=== PATIENT | male | born 1955 | race Caucasian/White ===

== ENCOUNTER 2017-03-31 10:57 | Day surgery (SDC) | payer OTHER ==
--- NOTE | 2017-03-31 08:28 | HP ---
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 It has been itching and enlarging. He also has got an area on his mid back that is also ulcerated as well as left face. PAST MEDICAL HISTORY: Chronic obstructive pulmonary disease, dementia. PAST SURGICAL HISTORY: Carpal tunnel, right hand surgery in the past. MEDICATIONS: Gabapentin, Prilosec, Aricept. ALLERGIES: NKDA. FAMILY HISTORY: Heart disease, hypertension, cancer. SOCIAL HISTORY: One and a half pack per day smoker. Denies alcohol abuse. REVIEW OF SYSTEMS: Twelve systems reviewed. No chest pain or palpitations other systems negative or noncontributory as above and per preadmission questionnaire. PHYSICAL EXAMINATION: GENERAL: No acute distress. HEENT: Sclerae nonicteric. NECK: No JVD. CHEST: Equal excursion, nonlabored breathing. CVS: Regular rate and rhythm. ABDOMEN: Soft. No peritoneal signs. EXTREMITIES: No significant edema. NEURO: Alert, moving extremities symmetrically. No gross motor deficits noted. SKIN: Face he has aching, changing, enlarging, itching lesion of unclear etiology on the left face, left neck and back. IMPRESSION: Enlarging left face, left neck and back lesion of indeterminate significance. I feel he would benefit from excisional biopsy. Risks and benefits explained in detail including but not limited to bleeding or infection, risk of sensory or motor nerve irritation, scar formation, eyelid dysfunction or chewing dysfunction but not limited to. He understands and agrees to the planned procedure and will proceed with excisional biopsy of enlarging left face, left neck and back lesion as an outpatient.
[~2017-03-31 10:57] MED LIST: Lactated Ringers 1,000 ML IV ONE; Lactated Ringers 1,000 ML IV SCH; Sensorcaine 0.25% 10 ML ONE
[2017-03-31] MEDS ORDERED: Quelicin Fliptop 200 MG/10 ML IJ ONE (10:58)
[2017-03-31] MEDS ORDERED: DILAUDID 2 MG INJECTION IV ONE (10:58)
[2017-03-31] MEDS ORDERED: Zofran 4 MG/2 ML VIAL IV ONE (10:58)
[2017-03-31] MEDS ORDERED: Decadron 4 MG INJ IV ONE (10:58)
[2017-03-31] MEDS ORDERED: TORAdol 30 mg Injection IJ ONE (10:58)
[2017-03-31] MEDS ORDERED: SUBLIMAZE 100 MCG/2 ML IV ONE (10:58)
[2017-03-31] MEDS ORDERED: DIPRIVAN 200 MG/20 ML IV ONE (10:58)
[2017-03-31] MEDS ORDERED: Xopenex 1.25 MG/0.5 ML UD NEBULE IH ONE (11:57)
[2017-03-31] MEDS ORDERED: Sodium Chloride 3 ML UD NEBULES IH ONE (11:58)
[2017-03-31] MEDS ORDERED: Sodium Chloride 3 ML UD NEBULES IH PRN (12:11)
[2017-03-31] MEDS ORDERED: KEFZOL 1 GM ONE (13:16)
[2017-03-31] MEDS ORDERED: Lactated Ringers 1,000 ML IV ONE (14:06)
[2017-03-31 15:24] VITALS: O2SAT 95
[2017-03-31 15:58] VITALS: BP 165/81; PULSE 95
--- NOTE | 2017-04-01 09:06 | OP ---
SURGERY DATE/TIME: 03/31/2017 1310 PREOPERATIVE DIAGNOSIS: Nonhealing lesion left face, left neck and back. POSTOPERATIVE DIAGNOSIS: Nonhealing lesion left face, left neck and back. PROCEDURES: 1) Excisional biopsy left face nonhealing, enlarging lesion of undetermined significance approximately 1.2 cm with margins with intermediate closure. 2) Excisional biopsy of left neck darkly pigmented nonhealing lesion of indeterminate significance approximately 1.3 cm with margins with intermediate closure. 3) Excisional nonhealing back lesion with intermediate bleeding approximately 1 cm margins with intermediate closure. SURGEON: Dr. Robin Granado. UNDERWRITING TECHNICIAN: Dr. Kiki Martinez. ANESTHESIA: General. ESTIMATED BLOOD LOSS: Minimal. INDICATIONS: As noted above. Risks and benefits explained in detail and not limited to and consent obtained. DESCRIPTION OF PROCEDURE AND FINDINGS: The patient is taken to the operating room. The area had been marked with the patient in preoperative holding area. General anesthesia was induced. He was then placed in first the lateral position. The back is prepped and draped in sterile fashion. After official time out and no disagreement with planned procedure marking out in spindle-shaped fashion around normal appearing skin, around this area, dissection is carried down circumferentially around this about 1 cm with margins resulting in a spindle-shaped excision pattern about 3 cm. Dissection carried down to normal appearing subcutaneous tissue and passed off. Good hemostasis noted with pinpoint cautery. Subcu closed with 3-0 Vicryl, skin closed with 4-0 Vicryl, interrupted 3-0 Prolene used to reinforce the local flaps that had been advanced back to the midline. Steri-Strips and sterile dressing applied. The patient tolerated the procedure well. There were no immediate complications. The patient is then repositioned in the supine position with the head rotated right. His face and neck were then prepped and draped in usual sterile fashion. Starting first with the neck in spindle-shaped fashion excising around this approximately 1.3 cm specimen with margins. Dissection carried down to normal appearing subcutaneous tissue beneath, passing the specimen off. The wound is then closed with interrupted 3-0 Vicryl to close the subcu. Deep dermis and skin closed with 4-0 Vicryl running subcuticular fashion. Steri-Strips and sterile dressing applied. 0.25% Marcaine local injected along the fascial defects. The patient tolerated the procedure well. There were no immediate complications on this part of the procedure. Attention is then turned to the face lesion marking out to normal appearing skin on either side of this in a spindle-shaped excision pattern this was about 1.2 cm with margins. Dissection carried down to normal appearing subcutaneous tissue beneath. The specimen passed off again measured about 1.2 cm with margins. Hemostasis controlled with some pinpoint cautery with the cautery turned very low. The wound is then closed in layers advancing the flaps back towards the midline with interrupted 4-0 Vicryl with a running subcuticular 5-0 Prolene used to close the skin. Steri-Strips and sterile dressing applied. The patient tolerated the procedure well. There were no immediate complications. Findings discussed with the family out in the waiting area.
== END 2017-03-31 15:50 | disposition home or self-care (01) ==
LOC: SDC 10:57
PROVIDERS: ATTEND Surgery
PROC: 0HB1XZZ Excision of Face Skin, External Approach (ICD-10-PCS; principal; 2017-03-31)
PROC: 0HB4XZZ Excision of Neck Skin, External Approach (ICD-10-PCS; 2017-03-31)
DX: L98.9 Disorder of the skin and subcutaneous tissue, unspecified (principal)
CPT/HCPCS: 00300; 36415; 88305; J0330; J0690; J1100; J1170; J1885; J2405; J2704; J3010; A9270-GY

== ENCOUNTER 2017-09-10 18:47 | Emergency (ER) | payer OTHER ==
[2017-09-10] MEDS ORDERED: Sodium Chloride 0.9% 1000 ML 1,000 ML IV STA (19:20)
[2017-09-10] MEDS ORDERED: DUONEB 0.5-3 MG/3 ml Neb IH ONE ×2 (19:22→21:07)
--- NOTE | 2017-09-10 19:26 | ERPHSYRPT ---
- History of Present Illness Time Seen by Provider: 09/10/17 19:15 Source: patient Exam Limitations: no limitations Patient Subjective Stated Complaint: Diagnosed with Influenza B yesterday and still has a fever today and still feels bad Triage Nursing Assessment: Pt A&O x3, temp of 97.4, lungs wheezy on right side, doesn't appear to be in any distress, bilateral pulses strong Physician History: 62 y/o male who was diagnosed with influenza B yesterday and was started on tamiflu, comes back to the ER with similar symptoms of cough, congestion, sore throat, runny nose, wheezing, muscle aches and shortness of breath. Pt was also started on prednisone and has not noticed any improvement. Pt arrives with a temp of 97.9. Timing/Duration: day(s) Cough Quality/Degree: moderate Possible Cause: no prior episodes Modifying Factors: Improves With: activity Associated Symptoms: fever, chills, cough, muscle aches, nasal congestion, sore throat Allergies/Adverse Reactions: No Known Drug Allergies Allergy (Verified 03/31/17 11:42) Home Medications: Fluticasone/Salmeterol 115/21 [Advair Hfa 115/21 Common canister*] 2 puff IH BID 11/28/14 [History] Loratadine 10 mg [Claritin 10 mg] 10 mg PO DAILY 11/28/14 [History] Mometasone Furoate [Nasonex] 2 spray NS DAILY 11/28/14 [History] Gabapentin [Neurontin] 600 mg PO BID 01/05/16 [History] Ipratropium/Albuterol Sulfate [Combivent Respimat Common Canister] 2 puff IH QID PRN 01/05/16 [History] Montelukast Sodium [Singulair] 10 mg PO DAILY 01/05/16 [History] Citalopram Hydrobromide 20 mg* [ceLEXa 20 MG] 20 mg PO DAILY 03/26/17 [ History] Donepezil HCl [Aricept] 10 mg PO DAILY 03/26/17 [History] Folic Acid 1 mg [Folate 1 mg] 1 mg PO DAILY 03/26/17 [History] Gabapentin 300 mg PO HS 03/26/17 [History] Meloxicam [Mobic] 15 mg PO DAILY 03/26/17 [History] Memantine HCl 5 mg [Namenda 5 MG] 5 mg PO DAILY 03/26/17 [History] Pramipexole Di-HCl 0.5 mg [Mirapex 0.5 MG Tablet] 0.5 mg PO DAILY [History] Hx Influenza Vaccination/Date Given: Yes Hx Pneumococcal Vaccination/Date Given: No - Review of Systems Constitutional: No Fever, No Chills Eyes: No Symptoms Ears, Nose, & Throat: Nose Congestion, Nose Discharge Respiratory: Cough, Dyspnea, Dyspnea on Exertion (DWYER) Cardiac: No Chest Pain, No Edema, No Syncope Abdominal/Gastrointestinal: No Abdominal Pain, No Nausea, No Vomiting, No Diarrhea Genitourinary Symptoms: No Dysuria Musculoskeletal: Myalgias, No Back Pain, No Neck Pain Skin: No Rash Neurological: No Dizziness, No Focal Weakness, No Sensory Changes Psychological: No Symptoms Endocrine: No Symptoms All Other Systems: Reviewed and Negative - Past Medical History Pertinent Past Medical History: Yes Neurological History: No Pertinent History ENT History: No Pertinent History Cardiac History: Angina Respiratory History: COPD, Sleep Apnea Endocrine Medical History: No Pertinent History Musculoskeletal History: No Pertinent History GI Medical History: GERD History: No Pertinent History Psycho-Social History: No Pertinent History Male Reproductive Disorders: No Pertinent History Other Medical History: restless leg - Past Surgical History Past Surgical History: Yes Neuro Surgical History: No Pertinent History Cardiac: No Pertinent History Respiratory: No Pertinent History Gastrointestinal: Other Genitourinary: No Pertinent History Musculoskeletal: Orthopedic Surgery Male Surgical History: No Pertinent History Other Surgical History: colonoscopy with poypectomy, carpal tunnel, mole removal - Social History Smoking Status: Current every day smoker How long have you smoked: 40yrs Exposure to second hand smoke: Yes Drug Use: none Patient Lives Alone: No - Nursing Vital Signs Nursing Vital Signs: Initial Vital Signs Temperature 97.4 F 09/10/17 19:01 Pulse Rate 98 H 09/10/17 19:01 Blood Pressure 137/92 09/10/17 19:01 O2 Sat by Pulse Oximetry 97 09/10/17 19:01 Pain Scale Pain Intensity 2 - Physical Exam General Appearance: no apparent distress, alert Eye Exam: PERRL/EOMI, eyes nml inspection Ears, Nose, Throat Exam: TMs normal, pharynx normal, dry mucous membranes Neck Exam: normal inspection, non-tender, supple, full range of motion Respiratory Exam: wheezing, No respiratory distress Cardiovascular Exam: regular rate/rhythm, normal heart sounds, normal peripheral pulses Gastrointestinal/Abdomen Exam: soft, No tenderness Back Exam: normal inspection, normal range of motion, No CVA tenderness, No vertebral tenderness Extremity Exam: normal inspection, normal range of motion Neurologic Exam: alert, oriented x 3, cooperative, normal mood/affect, sensation nml, No motor deficits Skin Exam: normal color, warm, dry, No rash Lymphatic Exam: No adenopathy SpO2: 97 Oxygen Delivery: Room Air - Course Nursing assessment & vital signs reviewed: Yes Ordered Tests: Active Orders 24 hr Category Date Time Status Rabbet Operator STAT Care 09/10/17 19:21 Active IV Insertion STAT Care 09/10/17 19:20 Active CHEST 2 VIEWS (PA AND LAT) Stat Exams 09/10/17 19:21 Taken BLOOD CULTURE Stat Lab 09/10/17 19:55 Received CBC W DIFF Stat Lab 09/10/17 19:45 Completed CMP Stat Lab 09/10/17 19:45 Completed Lactic Acid Stat Lab 09/10/17 19:20 Results Respiratory Nebulizer STAT RT 09/10/17 19:22 Completed Medication Summary Discontinued Medications Generic Name Dose Route Start Last Admin Trade Name Freq PRN Reason Stop Dose Admin Albuterol/Ipratropium 3 ml 09/10/17 19:22 09/10/17 21:09 Duoneb 0.5-3 Mg/3 Ml Neb IH 09/10/17 19:23 3 ml STAT ONE Administration Albuterol/Ipratropium Confirm 09/10/17 21:07 Duoneb 0.5-3 Mg/3 Ml Neb Administered 09/10/17 21:08 Dose 3 ml IH .STK-MED ONE Sodium Chloride 1,000 mls @ 999 mls/hr 09/10/17 19:20 09/10/17 19:46 Sodium Chloride 0.9% 1000 Ml IV 09/10/17 20:20 999 mls/hr .Q1H1M STA Administration Sodium Chloride Confirm 09/10/17 19:29 Sodium Chloride 0.9% 1000 Ml Administered 09/10/17 19:30 Dose 1,000 mls @ ud .ROUTE .STK-MED ONE Sodium Chloride Confirm 09/10/17 19:46 Sodium Chloride 0.9% 1000 Ml Administered 09/10/17 19:47 Dose 1,000 mls @ ud .ROUTE .[facility] Lab/Rad Data: Laboratory Result Diagrams 09/10/17 19:45 09/10/17 19:45 Laboratory Results 09/10/17 09/10/17 09/10/17 Range/Units 19:45 19:45 19:20 WBC 8.2 (4.0-10.5) K/mm3 RBC 5.08 (4.1-5.6) M/mm3 Hgb 15.6 (12.5-18.0) gm/dl Hct 46.3 (42-50) % MCV 91.1 (78-100) fl MCH 30.7 (26-32) pg MCHC 33.7 (32-36) g/dl RDW 14.0 (11.5-14.0) % Plt Count 179 (150-450) K/mm3 MPV 9.7 H (6-9.5) fl Gran % 74.9 H (36.0-66.0) % Lymphocytes % 15.9 L (24.0-44.0) % Monocytes % 8.9 (0.0-12.0) % Eosinophils % 0.2 (0.00-5.0) % Basophils % 0.1 (0.0-0.4) % Basophils # 0.01 (0-0.4) Sodium 138 (136-145) mEq/L Potassium 3.5 (3.5-5.1) mEq/L Chloride 100 (98-107) mEq/L Carbon Dioxide 24.9 (21-32) mEq/L Anion Gap 16.4 H (5-15) MEQ/L BUN 5 L (9-20) mg/dL Creatinine 0.98 (0.55-1.30) mg/dl Estimated GFR > 60 ML/MIN Glucose 140 H (70-110) MG/DL Lactic Acid 2.1 H (0.4-2.0) Calcium 8.9 (8.5-10.1) mg/dL Total Bilirubin 0.30 (0.2-1.0) mg/dL AST 17 (15-37) U/L ALT 35 (12-78) U/L Alkaline Phosphatase 52 (46-116) U/L Serum Total Protein 7.7 (6.4-8.2) gm/dL Albumin 3.3 L (3.4-5.0) g/dL - Progress Progress: improved Progress Note: 09/10/17 21:20 Pt feels better after receiving duoneb and solumedrol. Labs are unremarkable and the CXR does not show any infiltrate. Pt will continue on tamiflu and will add guafenesin with codeine and prednisone. - Departure Time of Disposition: 21:21 Departure Disposition: Home Clinical Impression: Influenza B COPD (chronic obstructive pulmonary disease) Qualifiers: COPD type: unspecified COPD Qualified Code(s): J44.9 - Chronic obstructive pulmonary disease, unspecified Condition: Stable Critical Care Time: No Referrals: CANDY IQBAL [Primary Care Provider] - Instructions: Chronic Obstructive Pulmonary Disease, Flu, Adult (DC) Additional Instructions: Continue taking tamiflu until completion. Start taking prednisone and guafenesin with codeine as needed for cough. Prescriptions: Codeine Phosphate/Guaifenesin [Codeine-Guaifen 10-100 mg/5 ml] 5 ml PO QID PRN # 120 liquid PRN Reason: Cough Prednisone 20 mg [Deltasone 20 mg] 20 mg PO DAILY #5 tablet
[2017-09-10] MEDS ORDERED: Sodium Chloride 0.9% 1000 ML 1,000 ML ONE ×2 (19:29→19:46)
[2017-09-10 19:53] LABS: Lactic Acid 2.1 (0.4-2.0)
[2017-09-10 20:01] LABS: BASOPHIL % 0.1 % (0.0-0.4); Basophil (Absolute #) 0.01 (0-0.4); Eosinophil % 0.2 % (0.00-5.0); Eosinophil (Absolute #) 0.02 (0-0.5); Granulocyte Absolute (ANC) 6.12 (1.4-6.9); Granulocytes % 74.9 % (36.0-66.0); Hematocrit 46.3 % (42-50); Hemoglobin 15.6 gm/dl (12.5-18.0); Lymphocytes % 15.9 % (24.0-44.0); Mean Cell Volume 91.1 fl (78-100); Mean Corpuscular Hemoglobin 30.7 pg (26-32); Mean Corpuscular Hgb Concent. 33.7 g/dl (32-36); Mean Platelet Volume 9.7 fl (6-9.5); Monocyte (Absolute #) 0.73 (0.0-1.3); Monocytes % 8.9 % (0.0-12.0); Platelet Count 179 K/mm3 (150-450); Red Blood Count 5.08 M/mm3 (4.1-5.6); White Blood Count 8.2 K/mm3 (4.0-10.5)
[2017-09-10 20:27] LABS: ALBUMIN 3.3 g/dL (3.4-5.0); ALKALINE PHOSPHATASE 52 U/L (46-116); ANION GAP 16.4 MEQ/L (5-15); BLOOD UREA NITROGEN 5 mg/dL (9-20); CHLORIDE 100 mEq/L (98-107); Calcium 8.9 mg/dL (8.5-10.1); Carbon Dioxide 24.9 mEq/L (21-32); Creatinine 1 0.98 mg/dl (0.55-1.30); Glucose 140 MG/DL (70-110); Potassium 3.5 mEq/L (3.5-5.1); SGOT/AST 17 U/L (15-37); SGPT/ALT 35 U/L (12-78); SODIUM 138 mEq/L (136-145); Total Protein 7.7 gm/dL (6.4-8.2)
[2017-09-10] MEDS ORDERED: TYLENOL W/ CODEINE 5 ML UD CUP PO ONE (21:19)
[2017-09-10] MEDS ORDERED: Robitussin AC Syrup Unit Dose Cup ONE (21:20)
[2017-09-10] MEDS ORDERED: Robitussin AC Syrup Unit Dose Cup PO ONE (21:25)
[2017-09-10 21:29] VITALS: BP 145/75; PULSE 88; O2SAT 95
--- NOTE | 2017-09-11 09:58 | XRAY ---
Exam: Two-view chest from 09/10/2017. Comparison: Two-view chest from 01/20/2017. Indication: Shortness of breath, fever, positive for influenza Findings: 2 upright PA chest films and a lateral chest film are submitted for evaluation. There is hyperinflation of the lungs with depressed flattened hemidiaphragms suggesting COPD. The transverse heart size is normal. Bilateral epicardial fat pads are seen at both cardiophrenic angles, larger on the left than right. This is unchanged. The remainder the kaitlin and mediastinal structures appears unremarkable. No air space infiltrates, vascular congestion, pneumothorax, or pleural fluid is seen. Minimal biapical pleural thickening/scarring is seen. No acute osseous process is seen. Impression: 1. Hyperinflation of lung morrison consistent with COPD. 2. No air space infiltrates or other acute cardio pulmonary disease is seen.
== END 2017-09-10 21:39 | disposition home or self-care (01) ==
LOC: ED 18:47
DX: J11.1 Influenza due to unidentified influenza virus with other respiratory manifestations (principal); J44.9 Chronic obstructive pulmonary disease, unspecified; Z79.899 Other long term (current) drug therapy
CPT/HCPCS: 36000; 36415; 71046; 80053; 83605; 85025; 87040; 93041; 94640; 99284; A9270-GY

== ENCOUNTER 2018-08-24 05:52 | Day surgery (SDC) | payer MEDICARE ==
[2018-08-24] MEDS ORDERED: DIPRIVAN 200 MG/20 ML IV ONE (05:53)
[2018-08-24] MEDS ORDERED: Lactated Ringers 1,000 ML IV SCH (06:30)
[2018-08-24] MEDS ORDERED: Lactated Ringers 1,000 ML IV ONE (06:39)
[2018-08-24 08:20] VITALS: O2SAT 97
[2018-08-24 08:27] VITALS: BP 160/88; PULSE 91
--- NOTE | 2018-08-24 08:33 | OP ---
SURGERY DATE/TIME: 08/24/2018 0730 PREOPERATIVE DIAGNOSIS: History of colon polyps and change in bowel habits. POSTOPERATIVE DIAGNOSIS: Polyp in the ascending colon. PROCEDURE: Colonoscopy with polypectomy using hot snare. SURGEON: Dr. White. ANESTHESIA: MAC. Anesthesia given by anesthesia department. HISTORY: The patient is a 63 year-old white male now presenting for colonoscopic evaluation. He previously had polyps removed. He is now having problems with increasing constipation. The patient was felt the need to have endoscopic evaluation. He was appraised of the risks of the procedure including the risk of perforation, phlebitis, untoward reaction to medication, bleeding and missed lesions. The patient verbalized his understanding and desired to have the procedure performed. DESCRIPTION OF PROCEDURE: The patient was given the medications by the anesthesia department. He had continuous pulse oximetry, ECG monitoring, intermittent blood pressure monitoring and tidal CO2 monitoring during the examination. He was placed in the left lateral decubitus position. A digital rectal examination was performed and revealed normal anal sphincter tone, no masses and normal prostate. The flexible Olympus pediatric colonoscope was used to intubate the rectum. A view of the colon was developed sequentially to the cecum. Upon insertion and withdrawal was noted a polyp measuring approximately 1.5 x 1.5 cm in size. It is sessile on the ascending colon near the cecum this is removed using hot polypectomy snare and retrieved for pathologic evaluation. Upon insertion and withdrawal including retroflex view in the rectum, no other mucosal lesions were encountered. The scope was removed from the patient who tolerated the procedure well and was sent back to OP recovery in good condition. The prep was noted to be fair to good.
== END 2018-08-24 08:37 | disposition home or self-care (01) ==
LOC: SDC 05:52
PROVIDERS: ATTEND Family Medicine
DX: D12.2 Benign neoplasm of ascending colon (principal); R19.4 Change in bowel habit; Z86.010 Personal history of colon polyps
CPT/HCPCS: J2704

== ENCOUNTER 2019-10-31 18:51 | Emergency (ER) | payer MEDICARE ==
[2019-10-31] MEDS ORDERED: Zofran 4 MG/2 ML VIAL IV ONE (19:40)
[2019-10-31] MEDS ORDERED: Sodium Chloride 0.9% 1000 ML 1,000 ML IV STA (19:40)
[2019-10-31] MEDS ORDERED: MORPHINE SULFATE 4 MG INJ IV ONE (19:40)
[2019-10-31] MEDS ORDERED: MORPHINE SULFATE 4 MG INJ ONE (19:59)
[2019-10-31] MEDS ORDERED: Zofran 4 MG/2 ML VIAL ONE (19:59)
[2019-10-31] MEDS ORDERED: Sodium Chloride 0.9% 1000 ML 1,000 ML ONE (20:00)
[2019-10-31 20:12] LABS: Absolute Neutrophil Ct (ANC) 9.44 (1.4-6.9); BASOPHIL % 0.2 % (0.0-0.4); Basophil (Absolute #) 0.03 (0-0.4); Eosinophil % 0.9 % (0.00-5.0); Eosinophil (Absolute #) 0.11 (0-0.5); Hematocrit 46.5 % (42-50); Hemoglobin 15.4 gm/dl (12.5-18.0); Lymphocyte (Absolute #) 1.93 (1.0-4.6); Lymphocytes % 15.7 % (24.0-44.0); Mean Cell Volume 93.6 fl (78-100); Mean Corpuscular Hgb Concent. 33.1 g/dl (32-36); Mean Platelet Volume 9.1 fl (7.5-11.0); Monocyte (Absolute #) 0.79 (0.0-1.3); Monocytes % 6.4 % (0.0-12.0); Neutrophil % 76.8 % (36.0-66.0); Platelet Count 207 K/mm3 (150-450); Red Blood Count 4.97 M/mm3 (4.1-5.6); Red Cell Distribution Width 13.8 % (11.5-14.0); White Blood Count 12.3 K/mm3 (4.0-10.5)
[2019-10-31 20:23] LABS: ALBUMIN 3.7 g/dL (3.5-5.0); ALKALINE PHOSPHATASE 51 U/L (38-126); AMYLASE 57 U/L (30-110); ANION GAP 11.2 MEQ/L (5-15); BLOOD UREA NITROGEN 12 mg/dL (9-20); CHLORIDE 104 mmol/L (98-107); Calcium 9.3 mg/dL (8.4-10.2); Carbon Dioxide 28 mmol/L (22-30); Creatinine 1 0.75 mg/dL (0.66-1.25); Glucose 119 mg/dL (74-106); LIPASE 109 U/L (23-300); Potassium 3.9 mmol/L (3.5-5.1); SGOT/AST 18 U/L (17-59); SGPT/ALT 18 U/L (0-50); SODIUM 139 mmol/L (137-145)
[2019-10-31 21:44] LABS: Appearance CLEAR (CLEAR); Bilirubin NEGATIVE (NEGATIVE); Blood NEGATIVE Ery/ul (0-5); Glucose NEGATIVE (NEGATIVE); Ketones NEGATIVE (NEGATIVE); Leukocyte Esterase NEGATIVE (NEGATIVE); Nitrite NEGATIVE (NEGATIVE); Protein,Urine Dip NEGATIVE (Negative); Specific Gravity 1.009 (1.005-1.025); Urobilinogen NEGATIVE mg/dL (0-1)
--- NOTE | 2019-10-31 21:45 | ERPHSYRPT ---
- History of Present Illness Time Seen by Provider: 10/31/19 19:10 Historian: patient Patient Subjective Stated Complaint: pt here for abd pain since ,and started having cough and sob since friday morning, no fever, Triage Nursing Assessment: pt alert, walked in, resp easy, skin w/d/p. wheezes heard,abd distended, tender to touch, has congested sounding cough Physician History: 64 years old male presented in the ER with 3 days history of generalized abdominal pain with mild distention. Patient report initially he thought about having constipation and has taken a laxative with a good bowel movement today but still having some pain. Patient described this as a dull aching to sharp pain moderate intensity, more with movements and palpation and no significant relieving factors. Because of abdominal pain he is also having some shortness of breath but no shortness of breath otherwise. He has mild nasal congestion but minimal cough. No fever or chills reported. Denies any associated nausea or vomiting. Patient reported mild abdominal distention but at his baseline abdomen is distended and does not feel much different. Denies any urinary symptoms. Timing/Duration: day(s) (3), gradual onset, worse Activities at Onset: rest Quality: sharpness Abdominal Pain Onset Location: generalized abdomen Pain Radiation: no radiation Severity of Pain-Max: moderate Severity of Pain-Current: moderate Modifying Factors: Improves With: movement Associated Symptoms: denies symptoms, shortness of breath Previous symptoms: no prior history Allergies/Adverse Reactions: No Known Drug Allergies Allergy (Verified 10/31/19 19:17) Home Medications: Fluticasone/Salmeterol 115/21 [Advair Hfa 115/21 Common canister*] 2 puff IH BID 11/28/14 [History] Gabapentin [Neurontin] 600 mg PO TID 01/05/16 [History] Ipratropium/Albuterol Sulfate [Combivent Respimat Common Canister] 2 puff IH QID PRN 01/05/16 [History] Montelukast Sodium [Singulair] 10 mg PO DAILY 01/05/16 [History] Pramipexole Di-HCl 0.5 mg [Mirapex 0.5 MG Tablet] 0.5 mg PO DAILY [History] predniSONE [Prednisone] 5 mg DAILY 10/31/19 [History] Hx Influenza Vaccination/Date Given: Yes Hx Pneumococcal Vaccination/Date Given: Yes Immunizations Up to Date: Yes Travel Risk - International Travel Have you traveled outside of the country in past 3 weeks: No (N) Have you or anyone close to you been diagnosed with or: No Do your reside in a community with a known COVID-19 case?: Yes If Yes where:: [facility] - Coronavirus Screening Has patient experienced Coronavirus symptoms: Yes Symptoms experienced: respiratory symptoms (i.e.Cought,shortness of breath) - Review of Systems Constitutional: No Symptoms Eyes: No Symptoms Ears, Nose, & Throat: Nose Congestion Respiratory: Cough, Dyspnea Cardiac: No Symptoms Abdominal/Gastrointestinal: Abdominal Pain, Constipation Genitourinary Symptoms: No Symptoms Musculoskeletal: No Symptoms Skin: No Symptoms Neurological: No Symptoms Psychological: No Symptoms Endocrine: No Symptoms Hematologic/Lymphatic: No Symptoms Immunological/Allergic: No Symptoms - Past Medical History Pertinent Past Medical History: Yes Neurological History: Dementia ENT History: No Pertinent History Cardiac History: Angina Respiratory History: COPD, Sleep Apnea Endocrine Medical History: No Pertinent History Musculoskeletal History: Osteoarthritis GI Medical History: GERD History: No Pertinent History Psycho-Social History: No Pertinent History Male Reproductive Disorders: No Pertinent History Other Medical History: restless leg - Past Surgical History Past Surgical History: Yes Neuro Surgical History: No Pertinent History Cardiac: No Pertinent History Respiratory: No Pertinent History Gastrointestinal: Other Genitourinary: No Pertinent History Musculoskeletal: Orthopedic Surgery Male Surgical History: No Pertinent History Other Surgical History: colonoscopy with poypectomy, carpal tunnel, mole removal face and back - Social History Smoking Status: Current every day smoker How long have you smoked: 47yrs Exposure to second hand smoke: Yes Drug Use: none Patient Lives Alone: Yes - Nursing Vital Signs Nursing Vital Signs: Initial Vital Signs Pulse Rate 79 10/31/19 18:52 Respiratory Rate 18 10/31/19 18:52 Blood Pressure 131/73 10/31/19 18:52 O2 Sat by Pulse Oximetry 97 10/31/19 18:52 Pain Scale Pain Intensity 5 - Physical Exam General Appearance: no apparent distress Eye Exam: PERRL/EOMI, eyes nml inspection Ears, Nose, Throat Exam: normal ENT inspection, pharynx normal Neck Exam: normal inspection, non-tender, supple, full range of motion Respiratory Exam: normal breath sounds, airway intact, wheezing, No chest tenderness, No respiratory distress Cardiovascular Exam: regular rate/rhythm, normal heart sounds, normal peripheral pulses Gastrointestinal/Abdomen Exam: soft, tenderness (Generalized) Back Exam: normal inspection, normal range of motion, No CVA tenderness Extremity Exam: normal inspection, normal range of motion Neurologic Exam: alert, oriented x 3, cooperative Skin Exam: normal color SpO2 Interpretation: normal SpO2: 97 O2 Delivery: Room Air - Course Nursing assessment & vital signs reviewed: Yes Ordered Tests: Active Orders 24 hr Category Date Time Status IV Insertion STAT Care 10/31/19 19:40 Active Isolation, Initiate & Maintain Q4H Care 10/31/19 19:16 Active ABDOMEN AND PELVIS W CONTRAST [CT] Stat Exams 10/31/19 19:41 Taken AMYLASE Stat Lab 10/31/19 20:09 Completed CBC W DIFF Stat Lab 10/31/19 20:09 Completed CMP Stat Lab 10/31/19 20:09 Completed LIPASE Stat Lab 10/31/19 20:09 Completed TROPONIN Q3H Lab 10/31/19 20:09 Completed TROPONIN Q3H Lab 10/31/19 22:45 Ordered TROPONIN Q3H Lab 11/01/19 01:45 Ordered TROPONIN Q3H Lab 11/01/19 04:45 Ordered TROPONIN Q3H Lab 11/01/19 07:45 Ordered UA W/RFX UR CULTURE Stat Lab 10/31/19 21:39 Received Medication Summary Discontinued Medications Generic Name Dose Route Start Last Admin Trade Name Freq PRN Reason Stop Dose Admin Sodium Chloride 1,000 mls @ 999 mls/hr 10/31/19 19:40 10/31/19 21:36 Sodium Chloride 0.9% 1000 Ml IV 10/31/19 20:40 Infused .Q1H1M STA Infusion Sodium Chloride Confirm 10/31/19 20:00 Sodium Chloride 0.9% 1000 Ml Administered 10/31/19 20:01 Dose 1,000 mls @ ud .ROUTE .STK-MED ONE Morphine Sulfate 4 mg 10/31/19 19:40 10/31/19 20:03 Morphine Sulfate 4 Mg Inj IV 10/31/19 19:41 4 mg STAT ONE Administration Morphine Sulfate Confirm 10/31/19 19:59 Morphine Sulfate 4 Mg Inj Administered 10/31/19 20:00 Dose 4 mg .ROUTE .STK-MED ONE Ondansetron HCl 4 mg 10/31/19 19:40 10/31/19 20:03 Zofran 4 Mg/2 Ml Vial IV 10/31/19 19:41 4 mg STAT ONE Administration Ondansetron HCl Confirm 10/31/19 19:59 Zofran 4 Mg/2 Ml Vial Administered 10/31/19 20:00 Dose 4 mg .ROUTE .STK-MED ONE Lab/Rad Data: Laboratory Result Diagrams 10/31/19 20:09 10/31/19 20:09 Laboratory Results 10/31/19 10/31/19 10/31/19 Range/Units 20:09 20:09 20:09 WBC 12.3 H (4.0-10.5) K/mm3 RBC 4.97 (4.1-5.6) M/mm3 Hgb 15.4 (12.5-18.0) gm/dl Hct 46.5 (42-50) % MCV 93.6 (78-100) fl MCH 31.0 (26-32) pg MCHC 33.1 (32-36) g/dl RDW 13.8 (11.5-14.0) % Plt Count 207 (150-450) K/mm3 MPV 9.1 (7.5-11.0) fl Gran % 76.8 H (36.0-66.0) % Eos # (Auto) 0.11 (0-0.5) Absolute Lymphs (auto) 1.93 (1.0-4.6) Absolute Monos (auto) 0.79 (0.0-1.3) Lymphocytes % 15.7 L (24.0-44.0) % Monocytes % 6.4 (0.0-12.0) % Eosinophils % 0.9 (0.00-5.0) % Basophils % 0.2 (0.0-0.4) % Absolute Granulocytes 9.44 H (1.4-6.9) Basophils # 0.03 (0-0.4) Sodium 139 (137-145) mmol/L Potassium 3.9 (3.5-5.1) mmol/L Chloride 104 (98-107) mmol/L Carbon Dioxide 28 (22-30) mmol/L Anion Gap 11.2 (5-15) MEQ/L BUN 12 (9-20) mg/dL Creatinine 0.75 (0.66-1.25) mg/dL Estimated GFR > 60.0 ML/MIN Glucose 119 H (74-106) mg/dL Calcium 9.3 (8.4-10.2) mg/dL Total Bilirubin 0.50 (0.2-1.3) mg/dL AST 18 (17-59) U/L ALT 18 (0-50) U/L Alkaline Phosphatase 51 (38-126) U/L Troponin I < 0.012 (0.000-0.034) ng/mL Serum Total Protein 7.0 (6.3-8.2) g/dL Albumin 3.7 (3.5-5.0) g/dL Amylase 57 (30-110) U/L Lipase 109 (23-300) U/L - Progress Progress: improved, re-examined Progress Note: 10/31/19 21:48 Is given IV fluid and pain medication x1, on reevaluation pain is almost completely gone. I have obtained acute abdomen work-up including CT with contrast which did not show any acute findings. Has mildly elevated white count of 12 with normal chemistries. I do not know the exact cause of his pain but could be secondary to constipation which she had earlier and is relieved now. I would give him a few pain pills to go home and recommended outpatient follow-up. Discussed signs symptoms of worsening needing return which he seems understanding. Stable for discharge. Counseled pt/family regarding: lab results, diagnosis, need for follow-up, rad results - Departure Departure Disposition: Home Clinical Impression: Generalized abdominal pain Condition: Good Critical Care Time: No Referrals: CANDY IQBAL [Primary Care Provider] - (1 to 2 days for reevaluation) Instructions: Acute Abdomen (Belly Pain), Adult (DC) Additional Instructions: Follow-up with primary care for reevaluation. Take pain medications as needed. Return to ER for any worsening. Prescriptions: Hydrocodone/APAP 5-325 Tab^^^ [[place] 5-325 Tablet^^^] 1 tab PO Q6HPRN PRN #10 tablet MDD 6 PRN Reason: Pain Hydrocodone/APAP 5-325 Tab^^^ [[place] 5-325 Tablet^^^] 1 tab PO Q6HPRN PRN #10 tablet MDD 6 PRN Reason: Pain
[2019-10-31 21:46] LABS: Bacteria NONE SEEN /HPF (NEGATIVE)
[2019-10-31 22:08] VITALS: BP 122/61; PULSE 88; O2SAT 95
--- NOTE | 2019-11-01 08:13 | XRAY ---
Indication: Abdomen pain and elevated WBC. Multiple contiguous axial images obtained through the abdomen and pelvis using 80 cc SUV 370 contrast only. Comparison: September 25, 2012. Lung bases again demonstrates pulmonary emphysema. Minimal bibasilar atelectasis/scarring. No infiltrate or effusion. Heart is not enlarged. Stomach is distended with food/fluid. Noncontrasted stomach and bowel loops appear nonobstructed. Normal air-filled appendix. Minimal descending and sigmoid diverticulosis without diverticulitis. No free fluid/air. Remaining liver, gallbladder, pancreas, spleen, adrenal glands, kidneys, ureters, and bladder appear unremarkable. Again minimal scattered aortoiliac calcifications. No AAA or pathological retroperitoneal lymphadenopathy. Osseous structures intact with mild degenerative changes throughout the thoracolumbar spine. Stable small fatty right inguinal hernia. Impression: 1. Minimal colonic diverticulosis without diverticulitis. 2. Stable pulmonary emphysema and small fatty right inguinal hernia. 3. Remaining CT abdomen/pelvis with contrast exam is negative. Comment: Preliminary interpretation was made by [facility]. No critical discrepancy.
== END 2019-10-31 22:07 | disposition home or self-care (01) ==
LOC: ED 18:51
DX: R10.84 Generalized abdominal pain (principal); F03.90 Unspecified dementia, unspecified severity, without behavioral disturbance, psychotic disturbance, mood disturbance, and anxiety; J44.9 Chronic obstructive pulmonary disease, unspecified; G47.30 Sleep apnea, unspecified; M19.90 Unspecified osteoarthritis, unspecified site; K21.9 Gastro-esophageal reflux disease without esophagitis; Z72.0 Tobacco use
CPT/HCPCS: 36000; 36415; 74177; 80053; 81001; 82150; 83690; 84484; 85025; 96360; 96374; 96375; 99284; J2270; J2405

== ENCOUNTER 2021-03-26 16:53 | Emergency (ER) | payer MEDICARE ==
--- NOTE | 2021-03-26 17:24 | ERPHSYRPT ---
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 HAS OCC COUGH, CHEST CLEAR , Physician History: 65 yo wm w h/o CAD/Stents/HTN/hyperlipidemia/2ppd smoker presents w L sternal chest pain which began at 10:00AM. Pain is 3/10 and nothing makes it better or worse. He was diaphoretic but denies N/V/dyspnea. He has had only 81mgASA today and has had no NTG. Timing/Duration: other (10:00AM) Quality: sharpness Location: substernal Chest Pain Radiation: no radiation Severity of Pain-Max: moderate Severity of Pain-Current: mild Modifying Factors: Improves With: nothing Associated Symptoms: No nausea, No vomiting, No palpitations, No heartburn, No abdominal pain, No shortness of breath, No cough, No hurts to breathe, No diaphoresis, No chills, No fever, No fatigue, No weakness, No swelling/lump in chest, No syncope, No rash, No headache, No dizziness, No edema, No back pain Prior Chest Pain/Cardiac Workup: cardiac cath Nitro Today/Relief: no nitro taken today Aspirin Treatment Today: 81 mg x 1 Allergies/Adverse Reactions: No Known Drug Allergies Allergy (Verified 03/26/21 17:02) Home Medications: Fluticasone/Salmeterol 115/21 [Advair Hfa 115/21 Common canister*] 2 puff IH BID 11/28/14 [History] Gabapentin [Neurontin] 600 mg PO TID 01/05/16 [History] Ipratropium/Albuterol Sulfate [Combivent Respimat Common Canister] 2 puff IH QID PRN 01/05/16 [History] Montelukast Sodium [Singulair] 10 mg PO DAILY 01/05/16 [History] Pramipexole Di-HCl 0.5 mg [Mirapex 0.5 MG Tablet] 0.5 mg PO DAILY 03/26/17 [History] predniSONE [Prednisone] 5 mg DAILY 04/19/20 [History] Hx Tetanus, Diphtheria Vaccination/Date Given: No Hx Influenza Vaccination/Date Given: Yes Hx Pneumococcal Vaccination/Date Given: Yes Immunizations Up to Date: Yes Travel Risk - International Travel Have you traveled outside of the country in past 3 weeks: No - Coronavirus Screening Are you exhibiting any of the following symptoms?: No Close contact with a COVID-19 positive Pt in past 14-21 Days: No - Vaccine Status Have you recieved a Covid-19 vaccination: Yes Social Science Manager: Moderna - Vaccination Dates Date of 2cond Vaccination (if applicable): ? - Review of Systems Constitutional: No Symptoms Eyes: No Symptoms Ears, Nose, & Throat: No Symptoms Respiratory: No Symptoms Abdominal/Gastrointestinal: No Symptoms Genitourinary Symptoms: No Symptoms Musculoskeletal: No Symptoms Skin: No Symptoms Neurological: No Symptoms Psychological: No Symptoms Endocrine: No Symptoms Hematologic/Lymphatic: No Symptoms Immunological/Allergic: No Symptoms - Past Medical History Pertinent Past Medical History: Yes Neurological History: Dementia ENT History: No Pertinent History Cardiac History: Angina Respiratory History: COPD, Sleep Apnea Endocrine Medical History: No Pertinent History Musculoskeletal History: Osteoarthritis GI Medical History: GERD History: No Pertinent History Psycho-Social History: No Pertinent History Male Reproductive Disorders: No Pertinent History Other Medical History: restless leg - Past Surgical History Past Surgical History: Yes Neuro Surgical History: No Pertinent History Cardiac: No Pertinent History Respiratory: No Pertinent History Gastrointestinal: Other Genitourinary: No Pertinent History Musculoskeletal: Orthopedic Surgery Male Surgical History: No Pertinent History Other Surgical History: colonoscopy with poypectomy, carpal tunnel, mole removal face and back - Social History Smoking Status: Current every day smoker How long have you smoked: 47yrs Exposure to second hand smoke: Yes Drug Use: none Patient Lives Alone: Yes Significant Family History: no pertinent family hx - Nursing Vital Signs Nursing Vital Signs: Initial Vital Signs Temperature 97.9 F 03/26/21 17:02 Pulse Rate 72 03/26/21 17:02 Respiratory Rate 23 03/26/21 17:02 Blood Pressure 155/79 03/26/21 17:02 O2 Sat by Pulse Oximetry 97 03/26/21 17:02 Pain Scale Pain Intensity 0 Hypertensive - Physical Exam General Appearance: no apparent distress Eye Exam: PERRL/EOMI, eyes nml inspection Ears, Nose, Throat Exam: normal ENT inspection, TMs normal, pharynx normal, moist mucous membranes Neck Exam: normal inspection, non-tender, supple, full range of motion, No meningismus, No mass, No Brudzinski, No Kernig's, No carotid bruit Respiratory Exam: airway intact, wheezing, No respiratory distress Cardiovascular Exam: regular rate/rhythm, normal heart sounds, normal peripheral pulses, No murmur Gastrointestinal/Abdomen Exam: soft, normal bowel sounds, No tenderness Back Exam: normal inspection, normal range of motion, No CVA tenderness, No vertebral tenderness Extremity Exam: normal inspection, normal range of motion Neurologic Exam: alert, oriented x 3, cooperative, editor greeting card II-XII nml as tested, normal mood/affect, nml cerebellar function, nml station & gait Skin Exam: normal color, warm, dry Lymphatic Exam: No adenopathy SpO2 Interpretation: normal SpO2: 97 O2 Delivery: Room Air - Course Nursing assessment & vital signs reviewed: Yes EKG Interpreted by Me: RATE (NSR/Normal QT-QTc/Nonspecific ST-T wave changes) - Radiology Exams Chest X-ray Interpretation: Interpreted by me (NAD) Ordered Tests: Medication Summary Discontinued Medications Generic Name Dose Route Start Last Admin Trade Name Freq PRN Reason Stop Dose Admin Aspirin 324 mg 03/26/21 17:25 03/26/21 18:20 Baby Aspirin 81 Mg Chew PO 03/26/21 17:26 324 mg STAT ONE Administration Aspirin Confirm 03/26/21 18:18 Baby Aspirin 81 Mg Chew Administered 03/26/21 18:19 Dose 324 mg .ROUTE .STK-MED ONE Enoxaparin Sodium 40 mg 03/27/21 07:30 03/27/21 07:31 Enoxaparin Sodium SQ 03/27/21 07:31 40 mg STAT ONE Administration Heparin Sodium (Beef Lung) 5,000 unit 03/26/21 19:20 03/26/21 20:57 Heparin 5000 Units/0.5 Ml (High Risk Med) IV 03/26/21 19:21 5,000 unit STAT ONE Administration Heparin Sodium (Beef Lung) Confirm 03/26/21 20:56 Heparin 5000 Units/0.5 Ml (High Risk Med) Administered 03/26/21 20:57 Dose 5,000 unit .ROUTE .STK-MED ONE Heparin Sodium/Dextrose 25,000 units in 250 mls @ 10 mls/hr 03/26/21 19:30 03/26/21 20:58 Heparin 25,000 Units/D5w 250ml Premix IV 04/25/21 19:29 10 mls/hr .Q24H KHANH 10 mls/hr Administration Heparin Sodium/Dextrose Confirm 03/26/21 20:56 Heparin 25,000 Units/D5w 250ml Premix Administered 03/26/21 20:57 Dose 25,000 units in 250 mls @ ud IV .STK-MED ONE Nitroglycerin 0.4 mg 03/26/21 19:11 03/26/21 19:37 Nitrostat 0.4 Mg Tablet SL 03/26/21 19:12 0.4 mg ONCE ONE Administration Lab/Rad Data: Laboratory Result Diagrams 03/26/21 17:45 03/26/21 17:45 Laboratory Results 03/27/21 03/27/21 03/27/21 Range/Units 05:20 02:30 00:00 WBC (4.0-10.5) K/mm3 RBC (4.1-5.6) M/mm3 Hgb (12.5-18.0) gm/dl Hct (42-50) % MCV (78-100) fl MCH (26-32) pg MCHC (32-36) g/dl RDW (11.5-14.0) % Plt Count (150-450) K/mm3 MPV (7.5-11.0) fl Gran % (36.0-66.0) % Eos # (Auto) (0-0.5) Absolute Lymphs (auto) (1.0-4.6) Absolute Monos (auto) (0.0-1.3) Lymphocytes % (24.0-44.0) % Monocytes % (0.0-12.0) % Eosinophils % (0.00-5.0) % Basophils % (0.0-0.4) % Absolute Granulocytes (1.4-6.9) Basophils # (0-0.4) PT (9.4-12.5) SECONDS INR (0.8-3.0) APTT (25.1-36.5) SECONDS Sodium (137-145) mmol/L Potassium (3.5-5.1) mmol/L Chloride (98-107) mmol/L Carbon Dioxide (22-30) mmol/L Anion Gap (5-15) MEQ/L BUN (9-20) mg/dL Creatinine (0.66-1.25) mg/dL Estimated GFR ML/MIN Glucose (74-106) mg/dL Calcium (8.4-10.2) mg/dL Total Bilirubin (0.2-1.3) mg/dL AST (17-59) U/L ALT (0-50) U/L Alkaline Phosphatase (38-126) U/L Troponin I 0.124 H* 0.134 H* 0.163 H* (0.000-0.034) ng/mL NT-Pro-B Natriuret Pep (0-900) pg/mL Serum Total Protein (6.3-8.2) g/dL Albumin (3.5-5.0) g/dL 03/26/21 03/26/21 03/26/21 Range/Units 20:45 17:45 17:45 WBC (4.0-10.5) K/mm3 RBC (4.1-5.6) M/mm3 Hgb (12.5-18.0) gm/dl Hct (42-50) % MCV (78-100) fl MCH (26-32) pg MCHC (32-36) g/dl RDW (11.5-14.0) % Plt Count (150-450) K/mm3 MPV (7.5-11.0) fl Gran % (36.0-66.0) % Eos # (Auto) (0-0.5) Absolute Lymphs (auto) (1.0-4.6) Absolute Monos (auto) (0.0-1.3) Lymphocytes % (24.0-44.0) % Monocytes % (0.0-12.0) % Eosinophils % (0.00-5.0) % Basophils % (0.0-0.4) % Absolute Granulocytes (1.4-6.9) Basophils # (0-0.4) PT 11.9 (9.4-12.5) SECONDS INR 1.01 (0.8-3.0) APTT 32.7 (25.1-36.5) SECONDS Sodium (137-145) mmol/L Potassium (3.5-5.1) mmol/L Chloride (98-107) mmol/L Carbon Dioxide (22-30) mmol/L Anion Gap (5-15) MEQ/L BUN (9-20) mg/dL Creatinine (0.66-1.25) mg/dL Estimated GFR ML/MIN Glucose (74-106) mg/dL Calcium (8.4-10.2) mg/dL Total Bilirubin (0.2-1.3) mg/dL AST (17-59) U/L ALT (0-50) U/L Alkaline Phosphatase (38-126) U/L Troponin I 0.185 H* 0.165 H* (0.000-0.034) ng/mL NT-Pro-B Natriuret Pep (0-900) pg/mL Serum Total Protein (6.3-8.2) g/dL Albumin (3.5-5.0) g/dL 03/26/21 03/26/21 Range/Units 17:45 17:45 WBC 11.7 H (4.0-10.5) K/mm3 RBC 4.45 (4.1-5.6) M/mm3 Hgb 13.9 (12.5-18.0) gm/dl Hct 42.2 (42-50) % MCV 94.8 (78-100) fl MCH 31.2 (26-32) pg MCHC 32.9 (32-36) g/dl RDW 14.2 H (11.5-14.0) % Plt Count 210 (150-450) K/mm3 MPV 8.6 (7.5-11.0) fl Gran % 74.8 H (36.0-66.0) % Eos # (Auto) 0.07 (0-0.5) Absolute Lymphs (auto) 2.04 (1.0-4.6) Absolute Monos (auto) 0.79 (0.0-1.3) Lymphocytes % 17.5 L (24.0-44.0) % Monocytes % 6.8 (0.0-12.0) % Eosinophils % 0.6 (0.00-5.0) % Basophils % 0.3 (0.0-0.4) % Absolute Granulocytes 8.75 H (1.4-6.9) Basophils # 0.03 (0-0.4) PT (9.4-12.5) SECONDS INR (0.8-3.0) APTT (25.1-36.5) SECONDS Sodium 129 L (137-145) mmol/L Potassium 4.8 (3.5-5.1) mmol/L Chloride 95 L (98-107) mmol/L Carbon Dioxide 25 (22-30) mmol/L Anion Gap 13.3 (5-15) MEQ/L BUN 10 (9-20) mg/dL Creatinine 0.82 (0.66-1.25) mg/dL Estimated GFR > 60.0 ML/MIN Glucose 101 (74-106) mg/dL Calcium 9.5 (8.4-10.2) mg/dL Total Bilirubin 0.80 (0.2-1.3) mg/dL AST 22 (17-59) U/L ALT 20 (0-50) U/L Alkaline Phosphatase 47 (38-126) U/L Troponin I (0.000-0.034) ng/mL NT-Pro-B Natriuret Pep 497 (0-900) pg/mL Serum Total Protein 7.2 (6.3-8.2) g/dL Albumin 4.2 (3.5-5.0) g/dL - Progress Progress Note: 03/26/21 19:22 324 asa po Pt accepted by Dr. Eubanks-bonnie to heparinize pt 03/26/21 22:25 Heparin 5000u bolus/1000u hr 1SL NTG w improvement in pain. [facility] not able to get pt a bed until tomorrow. Spoke w bonnie Belle pt shipped for probable cardiac cath IU system full Pt accepted by Dr. Elaine at [facility] 03/27/21 06:37 Pt stable throughout night waiting for bed at [facility] 03/27/21 07:01 Pt elected to leave AMA/Risks explained to pt including 03/27/21 07:04 Counseled pt/family regarding: lab results, diagnosis, rad results - Departure Departure Disposition: AMA Clinical Impression: NSTEMI (non-ST elevated myocardial infarction) Condition: Stable Critical Care Time: Yes Critical Care Time(excluding separately billable procedures): Critical 30-74 mins Referrals: CANDY IQBAL [Primary Care Provider] - Instructions: Chest Pain (DC) Additional Instructions: Follow up with your early head start director kacie
[2021-03-26] MEDS ORDERED: BABY ASPIRIN 81 MG CHEW PO ONE (17:25)
[2021-03-26 18:03] LABS: Absolute Neutrophil Ct (ANC) 8.75 (1.4-6.9); BASOPHIL % 0.3 % (0.0-0.4); Basophil (Absolute #) 0.03 (0-0.4); Eosinophil % 0.6 % (0.00-5.0); Eosinophil (Absolute #) 0.07 (0-0.5); Hematocrit 42.2 % (42-50); Hemoglobin 13.9 gm/dl (12.5-18.0); Lymphocyte (Absolute #) 2.04 (1.0-4.6); Lymphocytes % 17.5 % (24.0-44.0); Mean Cell Volume 94.8 fl (78-100); Mean Corpuscular Hemoglobin 31.2 pg (26-32); Mean Corpuscular Hgb Concent. 32.9 g/dl (32-36); Mean Platelet Volume 8.6 fl (7.5-11.0); Monocyte (Absolute #) 0.79 (0.0-1.3); Monocytes % 6.8 % (0.0-12.0); Neutrophil % 74.8 % (36.0-66.0); Platelet Count 210 K/mm3 (150-450); Red Blood Count 4.45 M/mm3 (4.1-5.6); Red Cell Distribution Width 14.2 % (11.5-14.0); White Blood Count 11.7 K/mm3 (4.0-10.5)
[2021-03-26] MEDS ORDERED: BABY ASPIRIN 81 MG CHEW ONE (18:18)
[2021-03-26 18:27] LABS: ALBUMIN 4.2 g/dL (3.5-5.0); ALKALINE PHOSPHATASE 47 U/L (38-126); ANION GAP 13.3 MEQ/L (5-15); BLOOD UREA NITROGEN 10 mg/dL (9-20); CHLORIDE 95 mmol/L (98-107); Calcium 9.5 mg/dL (8.4-10.2); Carbon Dioxide 25 mmol/L (22-30); Creatinine 1 0.82 mg/dL (0.66-1.25); EST GLOMERULAR FILTRATION RATE > 60.0 ML/MIN; Glucose 101 mg/dL (74-106); NT PRO BNP 497 pg/mL (0-900); Potassium 4.8 mmol/L (3.5-5.1); SGOT/AST 22 U/L (17-59); SGPT/ALT 20 U/L (0-50); SODIUM 129 mmol/L (137-145); Total Protein 7.2 g/dL (6.3-8.2)
[2021-03-26] MEDS ORDERED: Nitrostat 0.4 MG Tablet SL ONE (19:11)
[2021-03-26] MEDS ORDERED: Heparin 5000 UNITS/0.5 ML (HIGH RISK MED) IV ONE (19:20)
[2021-03-26 19:25] LABS: INR 1.01 (0.8-3.0); PROTIME 11.9 SECONDS (9.4-12.5)
[2021-03-26 19:28] LABS: PTT 32.7 SECONDS (25.1-36.5)
[2021-03-26] MEDS ORDERED: Heparin 25,000 units/D5W 250ML PREMIX 25,000 UNITS/250 ML BAG IV SCH (19:30)
[2021-03-26] MEDS ORDERED: Heparin 25,000 units/D5W 250ML PREMIX 25,000 UNITS/250 ML BAG IV ONE (20:56)
[2021-03-26] MEDS ORDERED: Heparin 5000 UNITS/0.5 ML (HIGH RISK MED) ONE (20:56)
[2021-03-27 07:04] VITALS: PULSE 91
[2021-03-27 07:05] VITALS: O2SAT 97
[2021-03-27 07:08] VITALS: BP 134/80
[2021-03-27] MEDS ORDERED: ENOXAPARIN SODIUM SQ ONE (07:30)
--- NOTE | 2021-03-27 08:34 | XRAY ---
Indication: Chest pain. Comparison: May 30, 2020. Portable chest remains hyperinflated and clear. Heart not enlarged. Bony thorax intact again with minimal degenerative changes. No new/acute findings.
== END 2021-03-27 07:10 | disposition left against medical advice (07) ==
LOC: ED 16:53
DX: I21.4 Non-ST elevation (NSTEMI) myocardial infarction (principal); R07.89 Other chest pain; I25.10 Atherosclerotic heart disease of native coronary artery without angina pectoris; I10 Essential (primary) hypertension; E78.5 Hyperlipidemia, unspecified; F17.200 Nicotine dependence, unspecified, uncomplicated; Z79.899 Other long term (current) drug therapy
CPT/HCPCS: 36000; 36415; 71045; 80053; 83880; 84484; 85025; 85610; 85730; 93005; 93041; 96372; 96374; 99285; J1644; J1650; A9270-GY

== ENCOUNTER 2021-04-02 14:03 | Emergency (ER) | payer MEDICARE ==
[2021-04-02] MEDS ORDERED: BABY ASPIRIN 81 MG CHEW PO ONE (14:14)
[2021-04-02 14:27] LABS: Absolute Neutrophil Ct (ANC) 10.86 (1.4-6.9); BASOPHIL % 0.2 % (0.0-0.4); Basophil (Absolute #) 0.03 (0-0.4); Eosinophil % 0.7 % (0.00-5.0); Eosinophil (Absolute #) 0.09 (0-0.5); Hematocrit 45.6 % (42-50); Hemoglobin 15.1 gm/dl (12.5-18.0); Lymphocyte (Absolute #) 1.76 (1.0-4.6); Mean Cell Volume 93.8 fl (78-100); Mean Corpuscular Hemoglobin 31.1 pg (26-32); Mean Corpuscular Hgb Concent. 33.1 g/dl (32-36); Mean Platelet Volume 8.7 fl (7.5-11.0); Monocyte (Absolute #) 0.85 (0.0-1.3); Monocytes % 6.3 % (0.0-12.0); Neutrophil % 79.8 % (36.0-66.0); Platelet Count 249 K/mm3 (150-450); Red Blood Count 4.86 M/mm3 (4.1-5.6); Red Cell Distribution Width 14.1 % (11.5-14.0); White Blood Count 13.6 K/mm3 (4.0-10.5)
[2021-04-02 14:32] LABS: INR 1.03 (0.8-3.0); PROTIME 12.1 SECONDS (9.4-12.5)
[2021-04-02 14:34] LABS: PTT 32.7 SECONDS (25.1-36.5)
--- NOTE | 2021-04-02 14:40 | ERPHSYRPT ---
- History of Present Illness Historian: patient Exam Limitations: no limitations Patient Subjective Stated Complaint: Pt states that he had chest pain this AM that woke him from sleeping, pain was in his neck and shoulder, took a nitro pill and felt better with minimal pain, pt states that the pain is back now Triage Nursing Assessment: Pt brought to the ER by his son, hypertensive, rates pain as 3-4/10, pain radiates to his neck, was here last week for the same reason but states that the pain is worse today, bounding pulses, denies N&V, states that his eyes were blurry this AM, skin n/w/d Physician History: 65 yo wm w CP beginning at 4:00AM which woke him up. Pain level was 7/10 and improved w 2SL NTG to 3/10. Pt had dyspnea/diaphoresis wo N/V. He took his 81mg ASA po this AM. I had the pt in the ER for a NSTEMI on 03/26/21. After an extended ER stay with scheduled transfer to [facility] after being turned down at [facility] due to lack of beds, he left [place]. He subsequently saw Dr. Tellez and is scheduled for a cath on 04/05/21. Pt has a h/o CAD/HTN/Hyperlipidemia/continued tobacco abuse. Timing/Duration: other (4AM) Quality: sharpness Location: substernal Chest Pain Radiation: no radiation Severity of Pain-Max: moderate Severity of Pain-Current: mild Modifying Factors: Improves With: nothing, nitroglycerin Associated Symptoms: shortness of breath, diaphoresis, No nausea, No vomiting, No palpitations, No heartburn, No abdominal pain, No cough, No hurts to breathe, No chills, No fever, No fatigue, No weakness, No swelling/lump in chest, No syncope, No rash, No headache, No dizziness, No edema Prior Chest Pain/Cardiac Workup: cardiac cath Nitro Today/Relief: 0.4 mg x 2 Aspirin Treatment Today: 81 mg x 1 Allergies/Adverse Reactions: No Known Drug Allergies Allergy (Verified 03/26/21 17:02) Home Medications: Gabapentin [Neurontin] 600 mg PO TID 01/05/16 [History] Ipratropium/Albuterol Sulfate [Combivent Respimat Common Canister] 2 puff IH QID PRN 01/05/16 [History] Montelukast Sodium [Singulair] 10 mg PO DAILY 01/05/16 [History] Pramipexole Di-HCl 0.5 mg [Mirapex 0.5 MG Tablet] 0.5 mg PO DAILY 03/26/17 [History] predniSONE [Prednisone] 20 mg PO DAILY 10/31/19 [History] Aspirin EC 81 mg [Ecotrin 81 mg] 81 mg PO DAILY 04/02/21 [History] Atorvastatin Calcium [Lipitor] 80 mg PO DAILY 04/02/21 [History] Carvedilol 12.5 mg [Coreg 12.5 mg] 12.5 mg PO BID 04/02/21 [History] Donepezil HCl 10 mg [Aricept 10 MG] 10 mg PO DAILY 04/02/21 [History] Levocetirizine Dihydrochloride 5 mg PO DAILY 04/02/21 [History] Ranolazine 500 MG [Ranexa 500 MG] 500 mg PO BID 04/02/21 [History] lisinopriL [Lisinopril] 10 mg PO DAILY 04/02/21 [History] Hx Tetanus, Diphtheria Vaccination/Date Given: No Hx Influenza Vaccination/Date Given: Yes Hx Pneumococcal Vaccination/Date Given: Yes Travel Risk - International Travel Have you traveled outside of the country in past 3 weeks: No - Coronavirus Screening Are you exhibiting any of the following symptoms?: No Close contact with a COVID-19 positive Pt in past 14-21 Days: No - Vaccine Status Have you recieved a Covid-19 vaccination: Yes 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 Network Specialist: Moderna - Vaccination Dates Date of 2cond Vaccination (if applicable): unknown - Review of Systems Constitutional: No Symptoms Eyes: No Symptoms Ears, Nose, & Throat: No Symptoms Respiratory: No Symptoms, Dyspnea Cardiac: No Symptoms, Chest Pain Abdominal/Gastrointestinal: No Symptoms Genitourinary Symptoms: No Symptoms Musculoskeletal: No Symptoms Skin: No Symptoms Neurological: No Symptoms Psychological: No Symptoms Endocrine: No Symptoms Hematologic/Lymphatic: No Symptoms Immunological/Allergic: No Symptoms - Past Medical History Pertinent Past Medical History: Yes Neurological History: Dementia ENT History: No Pertinent History Cardiac History: Angina Respiratory History: COPD, Sleep Apnea Endocrine Medical History: No Pertinent History Musculoskeletal History: Osteoarthritis GI Medical History: GERD History: No Pertinent History Psycho-Social History: No Pertinent History Male Reproductive Disorders: No Pertinent History Other Medical History: restless leg - Past Surgical History Past Surgical History: Yes Neuro Surgical History: No Pertinent History Cardiac: No Pertinent History Respiratory: No Pertinent History Gastrointestinal: Other Genitourinary: No Pertinent History Musculoskeletal: Orthopedic Surgery Male Surgical History: No Pertinent History Other Surgical History: colonoscopy with poypectomy, carpal tunnel, mole removal face and back - Social History Smoking Status: Current every day smoker How long have you smoked: 47yrs Exposure to second hand smoke: Yes Drug Use: none Patient Lives Alone: Yes Significant Family History: no pertinent family hx - Nursing Vital Signs Nursing Vital Signs: Initial Vital Signs Temperature 98.1 F 04/02/21 14:04 Pulse Rate 71 04/02/21 14:04 Respiratory Rate 15 04/02/21 14:04 Blood Pressure 163/96 04/02/21 14:04 O2 Sat by Pulse Oximetry 100 04/02/21 14:04 Pain Scale Pain Intensity 0 Hypertensive - Physical Exam General Appearance: no apparent distress Eye Exam: PERRL/EOMI, eyes nml inspection Ears, Nose, Throat Exam: normal ENT inspection, TMs normal, pharynx normal, moist mucous membranes, pharyngeal erythema Neck Exam: normal inspection, non-tender, full range of motion, No meningismus, No mass, No Brudzinski, No Kernig's, No carotid bruit, No JVD Respiratory Exam: airway intact, wheezing Cardiovascular Exam: regular rate/rhythm, normal heart sounds, No normal perip heral pulses, No murmur Gastrointestinal/Abdomen Exam: soft, normal bowel sounds, No tenderness Extremity Exam: normal inspection, normal range of motion Neurologic Exam: alert, oriented x 3, cooperative, 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, normal mood/affect, nml station & gait, sensation nml Skin Exam: normal color Lymphatic Exam: No adenopathy SpO2 Interpretation: normal SpO2: 100 O2 Delivery: Room Air - Course EKG Interpreted by Me: RATE (NSR/R75/Normal QT-Qtc/Non-specific ST-Twave changes) - Radiology Exams Chest X-ray Interpretation: Discussed w/ radiologist (NAD) Ordered Tests: Active Orders 24 hr Category Date Time Status AMA [Release AMA] OM.NOW Care 04/02/21 21:38 Completed EKG-ER Only STAT Care 04/02/21 14:14 Completed IV Insertion STAT Care 04/02/21 14:14 Completed CHEST 1 VIEW (PORTABLE) Stat Exams 04/02/21 14:15 Completed CBC W DIFF Stat Lab 04/02/21 14:20 Completed CMP Stat Lab 04/02/21 14:20 Completed NT PRO BNP Stat Lab 04/02/21 14:20 Completed PROTIME WITH INR Stat Lab 04/02/21 14:20 Completed PTT Stat Lab 04/02/21 14:20 Completed TROPONIN Q3H Lab 04/02/21 14:20 Completed TROPONIN Q3H Lab 04/02/21 17:34 Completed TROPONIN Q3H Lab 04/02/21 20:40 Completed Medication Summary Discontinued Medications Generic Name Dose Route Start Last Admin Trade Name Freq PRN Reason Stop Dose Admin Aspirin 324 mg 04/02/21 14:14 04/02/21 15:02 Baby Aspirin 81 Mg Chew PO 04/02/21 14:15 324 mg STAT ONE Administration Enoxaparin Sodium 80 mg 04/02/21 17:13 04/02/21 18:16 Enoxaparin Sodium SQ 04/02/21 17:14 80 mg STAT ONE Administration Enoxaparin Sodium Confirm 04/02/21 18:16 Enoxaparin Sodium Administered 04/02/21 18:17 Dose 80 mg SQ .STAdExtent-MED ONE Lab/Rad Data: Laboratory Result Diagrams 04/02/21 14:20 04/02/21 14:20 Laboratory Results 04/02/21 04/02/21 04/02/21 Range/Units 20:40 17:34 14:20 WBC (4.0-10.5) K/mm3 RBC (4.1-5.6) M/mm3 Hgb (12.5-18.0) gm/dl Hct (42-50) % MCV (78-100) fl MCH (26-32) pg MCHC (32-36) g/dl RDW (11.5-14.0) % Plt Count (150-450) K/mm3 MPV (7.5-11.0) fl Gran % (36.0-66.0) % Eos # (Auto) (0-0.5) Absolute Lymphs (auto) (1.0-4.6) Absolute Monos (auto) (0.0-1.3) Lymphocytes % (24.0-44.0) % Monocytes % (0.0-12.0) % Eosinophils % (0.00-5.0) % Basophils % (0.0-0.4) % Absolute Granulocytes (1.4-6.9) Basophils # (0-0.4) PT (9.4-12.5) SECONDS INR (0.8-3.0) APTT (25.1-36.5) SECONDS Sodium (137-145) mmol/L Potassium (3.5-5.1) mmol/L Chloride (98-107) mmol/L Carbon Dioxide (22-30) mmol/L Anion Gap (5-15) MEQ/L BUN (9-20) mg/dL Creatinine (0.66-1.25) mg/dL Estimated GFR ML/MIN Glucose (74-106) mg/dL Calcium (8.4-10.2) mg/dL Total Bilirubin (0.2-1.3) mg/dL AST (17-59) U/L ALT (0-50) U/L Alkaline Phosphatase (38-126) U/L Troponin I 0.067 H* 0.021 < 0.012 (0.000-0.034) ng/mL NT-Pro-B Natriuret Pep (0-900) pg/mL Serum Total Protein (6.3-8.2) g/dL Albumin (3.5-5.0) g/dL 04/02/21 04/02/21 04/02/21 Range/Units 14:20 14:20 14:20 WBC 13.6 H (4.0-10.5) K/mm3 RBC 4.86 (4.1-5.6) M/mm3 Hgb 15.1 (12.5-18.0) gm/dl Hct 45.6 (42-50) % MCV 93.8 (78-100) fl MCH 31.1 (26-32) pg MCHC 33.1 (32-36) g/dl RDW 14.1 H (11.5-14.0) % Plt Count 249 (150-450) K/mm3 MPV 8.7 (7.5-11.0) fl Gran % 79.8 H (36.0-66.0) % Eos # (Auto) 0.09 (0-0.5) Absolute Lymphs (auto) 1.76 (1.0-4.6) Absolute Monos (auto) 0.85 (0.0-1.3) Lymphocytes % 13.0 L (24.0-44.0) % Monocytes % 6.3 (0.0-12.0) % Eosinophils % 0.7 (0.00-5.0) % Basophils % 0.2 (0.0-0.4) % Absolute Granulocytes 10.86 H (1.4-6.9) Basophils # 0.03 (0-0.4) PT 12.1 (9.4-12.5) SECONDS INR 1.03 (0.8-3.0) APTT 32.7 (25.1-36.5) SECONDS Sodium 129 L (137-145) mmol/L Potassium 4.4 (3.5-5.1) mmol/L Chloride 94 L (98-107) mmol/L Carbon Dioxide 24 (22-30) mmol/L Anion Gap 14.6 (5-15) MEQ/L BUN 14 (9-20) mg/dL Creatinine 0.79 (0.66-1.25) mg/dL Estimated GFR > 60.0 ML/MIN Glucose 130 H (74-106) mg/dL Calcium 9.1 (8.4-10.2) mg/dL Total Bilirubin 1.30 (0.2-1.3) mg/dL AST 19 (17-59) U/L ALT 21 (0-50) U/L Alkaline Phosphatase 50 (38-126) U/L Troponin I (0.000-0.034) ng/mL NT-Pro-B Natriuret Pep 226 (0-900) pg/mL Serum Total Protein 7.1 (6.3-8.2) g/dL Albumin 4.2 (3.5-5.0) g/dL - Progress Progress Note: 04/02/21 17:[address] Marmolejo, wants to cath pt tomorrow at [facility] Pt accepted by Dr. Munoz at [facility] Spoke w Dr. Marmolejo, [place] for Lovenox 04/02/21 22:34 Pt left AMA after extende wait for bed at [facility]. Risks explained, including DC/ 04/02/21 22:37 324mg ASA chewable given after Hx/PE Counseled pt/family regarding: lab results, diagnosis, need for follow-up, rad results - Departure Departure Disposition: AMA Clinical Impression: Unstable angina, NSTEMI (non-ST elevated myocardial infarction) Condition: Stable Critical Care Time: No Referrals: CANDY IQBAL [Primary Care Provider] -
[2021-04-02 14:44] LABS: ALBUMIN 4.2 g/dL (3.5-5.0); ALKALINE PHOSPHATASE 50 U/L (38-126); ANION GAP 14.6 MEQ/L (5-15); BLOOD UREA NITROGEN 14 mg/dL (9-20); CHLORIDE 94 mmol/L (98-107); Calcium 9.1 mg/dL (8.4-10.2); Carbon Dioxide 24 mmol/L (22-30); Creatinine 1 0.79 mg/dL (0.66-1.25); EST GLOMERULAR FILTRATION RATE > 60.0 ML/MIN; Glucose 130 mg/dL (74-106); NT PRO BNP 226 pg/mL (0-900); Potassium 4.4 mmol/L (3.5-5.1); SGOT/AST 19 U/L (17-59); SGPT/ALT 21 U/L (0-50); SODIUM 129 mmol/L (137-145); Total Protein 7.1 g/dL (6.3-8.2)
--- NOTE | 2021-04-02 14:46 | XRAY ---
Indication: Chest pain. Comparison: March 26, 2021. Portable chest remains hyperinflated without focal infiltrate, consolidation, or large effusion. Heart and mediastinal structures within normal limits. No new/acute findings.
[2021-04-02] MEDS ORDERED: ENOXAPARIN SODIUM SQ ONE ×2 (17:13→18:16)
[2021-04-02 21:12] VITALS: BP 116/89; PULSE 73
[2021-04-02 22:37] VITALS: O2SAT 100
== END 2021-04-02 21:42 | disposition home or self-care (01) ==
LOC: ED 14:03
DX: I20.0 Unstable angina (principal); I21.4 Non-ST elevation (NSTEMI) myocardial infarction; R06.02 Shortness of breath; R07.9 Chest pain, unspecified; J44.9 Chronic obstructive pulmonary disease, unspecified; Z79.899 Other long term (current) drug therapy
CPT/HCPCS: 36000; 36415; 71045; 80053; 83880; 84484; 85025; 85610; 85730; 93005; 96372; 99284; J1650; A9270-GY

== ENCOUNTER 2021-07-03 06:01 | Day surgery (SDC) | payer MEDICARE ==
[2021-07-03] MEDS ORDERED: Lactated Ringers 1,000 ML IV SCH (06:30)
[2021-07-03] MEDS ORDERED: DIPRIVAN 200 MG/20 ML IV ONE (07:31)
--- NOTE | 2021-07-03 08:11 | OP ---
SURGERY DATE/TIME: 07/03/2021 0728 PREOPERATIVE DIAGNOSIS: History of colon polyps and screening examination. POSTOPERATIVE DIAGNOSIS: Small polyps in the transverse and sigmoid colon. PROCEDURE: Colonoscopy with cold forceps biopsy. SURGEON: Dr. White. ANESTHESIA: MAC. Medications given by anesthesia department. HISTORY: The patient is a 65-year-old white male patient with history of previous polyps. He is here now for repeat surveillance screening examination. The patient was described the risks of the procedure including the risk of perforation, phlebitis, untoward reaction to medication, bleeding and missed lesions. The patient verbalized his understanding and desired to have the procedure performed. DESCRIPTION OF PROCEDURE: The patient was given the medications by the anesthesia department. He had continuous pulse oximetry, ECG monitoring, intermittent blood pressure monitoring during the examination. He was placed in the left lateral decubitus position. A digital rectal examination was performed and revealed normal anal sphincter tone, no masses and normal prostate. The flexible Olympus pediatric colonoscope was used to intubate the rectum. A view of the colon was developed sequentially to the cecum. Upon insertion and withdrawal, including a retroflex view, was noted small what appeared to be more likely hyperplastic polyps in the transverse colon and this was biopsied to rule out any adenomatous change. There was a slightly larger one in the sigmoid colon and this is also biopsied using cold biopsy forceps with multiple passes of the forceps to destroy the lesion. The scope was removed from the patient who tolerated the procedure well and was sent back to OP recovery in good condition. The prep was noted to be fair to good.
[2021-07-03 08:24] VITALS: BP 141/87; PULSE 85; O2SAT 96
== END 2021-07-03 08:54 | disposition home or self-care (01) ==
LOC: SDC 06:01
PROVIDERS: ATTEND Family Medicine
DX: Z12.11 Encounter for screening for malignant neoplasm of colon (principal); Z09 Encounter for follow-up examination after completed treatment for conditions other than malignant neoplasm; Z86.010 Personal history of colon polyps; D12.3 Benign neoplasm of transverse colon
CPT/HCPCS: 88305; J2704

== ENCOUNTER 2022-10-01 09:36 | Day surgery (SDC) | payer MEDICARE ==
[~2022-10-01 09:36] MED LIST changes: +Ak-Dilate OPHTHALMIC*** 1.065 ML, Cyclogyl 1% OPHTH SOL 1.065 ML, GATIFLOXACIN 0.5% OPH... OP ONE; +BETADINE 5% OPHTHALMIC 30 ML OP ONE; -Lactated Ringers 1,000 ML IV ONE; +NON-FORMULARY ITEM OP ONE; -Sensorcaine 0.25% 10 ML ONE; +TETRACAINE 0.5% STERI-UNIT SOL OP ONE; +cefUROXime sodium 0.005 GM in Sodium Chloride Flush 30 ML*** 0.5 ML IJ ONE
[2022-10-01] MEDS ORDERED: Epinephrine Preservative Free 1 MG/ML IJ ONE (09:37)
[2022-10-01] MEDS ORDERED: Zofran 4 MG/2 ML VIAL IV PRN (10:00)
[2022-10-01] MEDS ORDERED: ACETAZOLAMIDE 250 MG TABLET PO ONE (10:00)
[2022-10-01] MEDS ORDERED: Lactated Ringers 1,000 ML IV ONE ×2 (10:01→10:34)
[2022-10-01] MEDS ORDERED: DIPRIVAN 200 MG/20 ML IV ONE ×2 (10:52→11:29)
[2022-10-01] MEDS ORDERED: Xylocaine-Mpf 2% 5 Ml Vial ONE (10:52)
[2022-10-01] MEDS ORDERED: SUBLIMAZE 100 MCG/2 ML ONE (11:22)
[2022-10-01 11:57] VITALS: BP 134/80; PULSE 80; O2SAT 97
== END 2022-10-01 12:10 | disposition home or self-care (01) ==
LOC: SDC 09:36
PROVIDERS: ATTEND Ophthalmology
DX: H25.812 Combined forms of age-related cataract, left eye (principal)
CPT/HCPCS: C1780; J0171; J2704; J3010; A9270-GY

== ENCOUNTER 2022-10-29 08:15 | Day surgery (SDC) | payer MEDICARE ==
[2022-10-29] MEDS ORDERED: Epinephrine Preservative Free 1 MG/ML IJ ONE (08:16)
[2022-10-29] MEDS ORDERED: Lactated Ringers 1,000 ML IV ONE (08:40)
[2022-10-29] MEDS ORDERED: Zofran 4 MG/2 ML VIAL IV PRN (10:00)
[2022-10-29] MEDS ORDERED: ACETAZOLAMIDE 250 MG TABLET PO ONE (10:00)
[2022-10-29] MEDS ORDERED: DIPRIVAN 200 MG/20 ML IV ONE ×2 (10:57→11:07)
[2022-10-29 11:53] VITALS: O2SAT 95
[2022-10-29 12:06] VITALS: BP 116/70; PULSE 69
== END 2022-10-29 12:08 | disposition home or self-care (01) ==
LOC: SDC 08:15
PROVIDERS: ATTEND Ophthalmology
DX: H25.811 Combined forms of age-related cataract, right eye (principal)
CPT/HCPCS: 66982; C1780; J0171; J2704; A9270-GY

== ENCOUNTER 2022-10-31 12:34 | Emergency (ER) | payer MEDICARE ==
--- NOTE | 2022-10-31 12:37 | ERPHSYRPT ---
- History of Present Illness Time Seen by Provider: 10/31/22 12:37 Historian: patient Exam Limitations: no limitations Physician History: This is a 67-year-old white male patient of Dr. White and flight security specialist Dr. Marmolejo who underwent cataract surgery yesterday and presents today with sudden onset of left anterior chest pain that began at 230 this morning. It woke him up out of his sleep. Patient has a history of coronary artery disease and coronary artery stent placement, COPD and continues to smoke cigarettes, hypertension, hyperlipidemia and restless leg syndrome. Since the pain began at 230 this morning, the patient took a total of 4 nitroglycerin without significant benefit. Patient had mild expiratory wheezing upon entrance into the emergency department Timing/Duration: today Quality: sharpness Location: other (Left anterior chest) Severity of Pain-Max: moderate Severity of Pain-Current: mild (To moderate) Associated Symptoms: denies symptoms Prior Chest Pain/Cardiac Workup: cardiac cath, echocardiography, recently seen/treated (Patient underwent cataract surgery yesterday) Nitro Today/Relief: 0.4 mg x 4, provided at home, no relief Aspirin Treatment Today: 81 mg x 2, provided at home Allergies/Adverse Reactions: No Known Drug Allergies Allergy (Verified 10/31/22 12:35) Home Medications: Gabapentin [Neurontin] 600 mg PO TID 01/05/16 [History] Ipratropium/Albuterol Sulfate [Combivent Respimat Common Canister] 2 puff IH QID PRN 01/05/16 [History] Montelukast Sodium [Singulair] 10 mg PO DAILY 01/05/16 [History] predniSONE [Prednisone] 10 mg PO DAILY 10/31/19 [History] Aspirin EC 81 mg [Ecotrin 81 mg] 81 mg PO DAILY 04/02/21 [History] Atorvastatin Calcium [Lipitor] 80 mg PO DAILY 04/02/21 [History] Carvedilol 12.5 mg [Coreg 12.5 mg] 12.5 mg PO BID 04/02/21 [History] Levocetirizine Dihydrochloride 5 mg PO DAILY 04/02/21 [History] lisinopriL [Lisinopril] 10 mg PO DAILY 04/02/21 [History] Fluticasone/Salmeterol 115/21* [Advair Hfa 115/21 Mcg Inhaler] 1 puff IH DAILY 06/21/22 [History] Amlodipine Besylate 5 mg [Norvasc 5 mg] 2.5 mg PO UD 08/29/22 [History] Isosorbide Mononitrate [Isosorbide Mononitrate ER] 30 mg PO DAILY 10/29/22 [History] Hx Tetanus, Diphtheria Vaccination/Date Given: No Hx Influenza Vaccination/Date Given: Yes Hx Pneumococcal Vaccination/Date Given: Yes Travel Risk - International Travel Have you traveled outside of the country in past 3 weeks: No - Coronavirus Screening Are you exhibiting any of the following symptoms?: No Close contact with a COVID-19 positive Pt in past 14-21 Days: No - Vaccine Status Have you recieved a Covid-19 vaccination: Yes Circ[employer] [place]: Moderna - Vaccination Dates Date of 2cond Vaccination (if applicable): unknown - Review of Systems Constitutional: No Symptoms Eyes: No Symptoms Ears, Nose, & Throat: No Symptoms Respiratory: No Symptoms Cardiac: Chest Pain Abdominal/Gastrointestinal: No Symptoms (Left chest) Genitourinary Symptoms: No Symptoms Musculoskeletal: No Symptoms Skin: No Symptoms Neurological: No Symptoms Psychological: No Symptoms Endocrine: No Symptoms Hematologic/Lymphatic: No Symptoms Immunological/Allergic: No Symptoms All Other Systems: Reviewed and Negative - Past Medical History Pertinent Past Medical History: Yes Neurological History: Dementia ENT History: No Pertinent History Cardiac History: Angina, Hypertension Respiratory History: COPD, Sleep Apnea Endocrine Medical History: No Pertinent History Musculoskeletal History: Osteoarthritis GI Medical History: GERD History: No Pertinent History Psycho-Social History: No Pertinent History Male Reproductive Disorders: No Pertinent History Other Medical History: restless leg - Past Surgical History Past Surgical History: Yes Neuro Surgical History: No Pertinent History Cardiac: No Pertinent History Respiratory: No Pertinent History Gastrointestinal: Other Genitourinary: No Pertinent History Musculoskeletal: Orthopedic Surgery Male Surgical History: No Pertinent History Other Surgical History: colonoscopy with poypectomy, carpal tunnel, mole removal face and back. right knee scope - Social History Smoking Status: Current every day smoker How long have you smoked: 47yrs Exposure to second hand smoke: Yes Drug Use: none Patient Lives Alone: Yes Significant Family History: no pertinent family hx - Nursing Vital Signs Nursing Vital Signs: Initial Vital Signs Temperature 97.6 F 10/31/22 12:34 Pulse Rate 80 04/20/23 12:34 Respiratory Rate 16 10/31/22 12:34 Blood Pressure 166/82 10/31/22 12:34 O2 Sat by Pulse Oximetry 99 10/31/22 12:34 Pain Scale Pain Intensity 2 - Physical Exam General Appearance: no apparent distress, alert, anxiety, thin Eye Exam: PERRL/EOMI, eyes nml inspection Ears, Nose, Throat Exam: normal ENT inspection, moist mucous membranes Neck Exam: normal inspection, non-tender, supple, full range of motion Respiratory Exam: chest tenderness, airway intact, wheezing (Mild expiratory wheezing diffusely), No respiratory distress Cardiovascular Exam: regular rate/rhythm, normal heart sounds, normal peripheral pulses Gastrointestinal/Abdomen Exam: soft, normal bowel sounds, No tenderness Rectal Exam: not done Back Exam: normal inspection, normal range of motion, No CVA tenderness, No vertebral tenderness Extremity Exam: normal inspection, normal range of motion, pelvis stable Neurologic Exam: alert, oriented x 3, cooperative, community specialist II-XII nml as tested, normal mood/affect, nml cerebellar function, nml station & gait, sensation nml Skin Exam: normal color, warm, dry Lymphatic Exam: No adenopathy SpO2 Interpretation: normal O2 Delivery: Room Air - Course Nursing assessment & vital signs reviewed: Yes EKG Interpreted by Me: RATE (96), Sinus Rhythm, NORMAL AXIS, NORMAL INTERVALS, NORMAL QRS, NORMAL ST-T, Other (I do not appreciate any significant ST segment changes on today's twelve-lead EKG.) Ordered Tests: Active Orders 24 hr Category Date Time Status EKG-ER Only STAT Care 10/31/22 12:46 Active IV Insertion STAT Care 10/31/22 12:46 Active Pulse Oximetry (ED) STAT Care 10/31/22 12:46 Active CHEST 1 VIEW (PORTABLE) Stat Exams 10/31/22 12:47 Completed CBC W DIFF Stat Lab 10/31/22 12:45 Completed CMP Stat Lab 10/31/22 12:45 Completed D-DIMER QUANTITATIVE Stat Lab 10/31/22 12:45 Completed NT PRO BNPII Stat Lab 10/31/22 12:45 Completed PROTIME WITH INR Stat Lab 10/31/22 12:45 Completed TROPONIN Q4H Lab 10/31/22 12:45 Completed TROPONIN Q4H Lab 10/31/22 15:23 Completed TROPONIN Q4H Lab 10/31/22 21:00 Ordered Medication Summary Discontinued Medications Generic Name Dose Route Start Last Admin Trade Name Tila PRN Reason Stop Dose Admin Aspirin 324 mg 10/31/22 12:46 10/31/22 13:10 Aspirin 81 Mg Tab.Chew PO 10/31/22 12:47 324 mg STAT ONE Administration Aspirin Confirm 10/31/22 13:10 Aspirin 81 Mg Tab.Chew Administered 10/31/22 13:11 Dose 324 mg .ROUTE .STK-MED ONE Ceftriaxone Sodium/Dextrose 1 g in 50 mls @ 100 mls/hr 10/31/22 13:26 10/31/22 14:37 Rocephin 1 Gm-D5w 50 Ml Bag IV 10/31/22 13:55 Infused STAT STA Infusion Ceftriaxone Sodium/Dextrose Confirm 10/31/22 14:00 Rocephin 1 Gm-D5w 50 Ml Bag Administered 10/31/22 14:01 Dose 1 g in 50 mls @ ud IV .STK-MED ONE Morphine Sulfate 4 mg 10/31/22 13:26 10/31/22 14:01 Morphine Sulfate 4 Mg/Ml Injection IV 10/31/22 13:27 4 mg STAT ONE Administration Morphine Sulfate Confirm 10/31/22 14:00 Morphine Sulfate 4 Mg/Ml Injection Administered 10/31/22 14:01 Dose 4 mg .ROUTE .STK-MED ONE Ondansetron HCl 4 mg 10/31/22 13:26 10/31/22 14:01 Ondansetron Hcl 4 Mg/2 Ml Vial IV 10/31/22 13:27 4 mg STAT ONE Administration Ondansetron HCl Confirm 10/31/22 13:59 Ondansetron Hcl 4 Mg/2 Ml Vial Administered 10/31/22 14:00 Dose 4 mg .ROUTE .STK-MED ONE Potassium Chloride 20 meq 10/31/22 15:26 10/31/22 15:30 Potassium Chloride Tab 10 Meq Tab PO 10/31/22 15:27 20 meq STAT ONE Administration Potassium Chloride Confirm 10/31/22 15:30 Potassium Chloride Tab 10 Meq Tab Administered 10/31/22 15:31 Dose 20 meq PO .STK-MED ONE Lab/Rad Data: Laboratory Result Diagrams 10/31/22 12:45 10/31/22 12:45 Laboratory Results 10/31/22 10/31/22 10/31/22 Range/Units 15:23 12:45 12:45 WBC (4.0-10.5) x10^3/uL RBC (4.1-5.6) x10^6/uL Hgb (12.5-18.0) g/dL Hct (42-50) % MCV (78-100) fL MCH (26-32) pg MCHC (32-36) g/dL RDW (11.5-14.0) % Plt Count (150-450) x10^3/uL MPV (7.5-11.0) fL Gran % (36.0-66.0) % Immature Gran % (Auto) (0.00-0.4) % Nucleat RBC Rel Count (0.00-0.1) % Eos # (Auto) (0-0.5) x10^3/uL Immature Gran # (Auto) (0.00-0.03) x10^3u/L Absolute Lymphs (auto) (1.0-4.6) x10^3/uL Absolute Monos (auto) (0.0-1.3) x10^3/uL Absolute Nucleated RBC (0.00-0.01) x10^3u/L Lymphocytes % (24.0-44.0) % Monocytes % (0.0-12.0) % Eosinophils % (0.00-5.0) % Basophils % (0.0-0.4) % Absolute Granulocytes (1.4-6.9) x10^3/uL Basophils # (0-0.4) x10^3/uL PT 10.4 (9.4-12.5) SECONDS INR 0.95 (0.8-3.0) D-Dimer 0.51 H (0.0-0.50) mg/L Sodium (137-145) mmol/L Potassium (3.5-5.1) mmol/L Chloride (98-107) mmol/L Carbon Dioxide (22-30) mmol/L Anion Gap (5-15) MEQ/L BUN (9-20) mg/dL Creatinine (0.66-1.25) mg/dL Estimated GFR ML/MIN Glucose (74-106) mg/dL Calcium (8.4-10.2) mg/dL Total Bilirubin (0.2-1.3) mg/dL AST (17-59) U/L ALT (0-50) U/L Alkaline Phosphatase (38-126) U/L Troponin I 0.050 H* 0.048 H* (0.000-0.034) ng/mL NT-Pro-B Natriuret Pep (<300) pg/mL Serum Total Protein (6.3-8.2) g/dL Albumin (3.5-5.0) g/dL 10/31/22 10/31/22 Range/Units 12:45 12:45 WBC 11.9 H (4.0-10.5) x10^3/uL RBC 4.67 (4.1-5.6) x10^6/uL Hgb 14.8 (12.5-18.0) g/dL Hct 43.7 (42-50) % MCV 93.6 (78-100) fL MCH 31.7 (26-32) pg MCHC 33.9 (32-36) g/dL RDW 13.1 (11.5-14.0) % Plt Count 210 (150-450) x10^3/uL MPV 9.2 (7.5-11.0) fL Gran % 70.2 H (36.0-66.0) % Immature Gran % (Auto) 0.3 (0.00-0.4) % Nucleat RBC Rel Count 0.0 (0.00-0.1) % Eos # (Auto) 0.15 (0-0.5) x10^3/uL Immature Gran # (Auto) 0.04 H (0.00-0.03) x10^3u/L Absolute Lymphs (auto) 2.63 (1.0-4.6) x10^3/uL Absolute Monos (auto) 0.68 (0.0-1.3) x10^3/uL Absolute Nucleated RBC 0.00 (0.00-0.01) x10^3u/L Lymphocytes % 22.2 L (24.0-44.0) % Monocytes % 5.7 (0.0-12.0) % Eosinophils % 1.3 (0.00-5.0) % Basophils % 0.3 (0.0-0.4) % Absolute Granulocytes 8.32 H (1.4-6.9) x10^3/uL Basophils # 0.04 (0-0.4) x10^3/uL PT (9.4-12.5) SECONDS INR (0.8-3.0) D-Dimer (0.0-0.50) mg/L Sodium 134 L (137-145) mmol/L Potassium 3.3 L (3.5-5.1) mmol/L Chloride 100 (98-107) mmol/L Carbon Dioxide 22 (22-30) mmol/L Anion Gap 14.8 (5-15) MEQ/L BUN 12 (9-20) mg/dL Creatinine 1.35 H (0.66-1.25) mg/dL Estimated GFR 55.9 ML/MIN Glucose 144 H (74-106) mg/dL Calcium 8.9 (8.4-10.2) mg/dL Total Bilirubin 0.90 (0.2-1.3) mg/dL AST 26 (17-59) U/L ALT 27 (0-50) U/L Alkaline Phosphatase 45 (38-126) U/L Troponin I (0.000-0.034) ng/mL NT-Pro-B Natriuret Pep 308 (<300) pg/mL Serum Total Protein 7.5 (6.3-8.2) g/dL Albumin 4.2 (3.5-5.0) g/dL - Progress Progress: improved, re-examined Air Movement: good Progress Note: 10/31/22 14:16 Chest x-ray was read by the radiologist and the impression was reviewed by me. The radiologist interpretation shows new minimal bibasilar hazy interstitial alveolar opacities without consolidation or large effusion. I spoke with the patient's flight security specialist, Dr. Marmolejo. He felt that this patients current chest pain was not necessarily cause for alarm. He also felt we can observe him here and repeat 3-hour twelve-lead EKG and troponin level. If the patient's pain is significant and persist and/or there are significant tw elve-lead EKG changes and rising troponin level then we should transfer him to [place] where he/his cardiology group can consult and help manage his care there. 10/31/22 16:56 Patient states that he no longer has chest pain and he wants to go home. His 3- hour troponin is approximately the same as the initial troponin. The initial troponin was 0.048 and now at 0.05. His twelve-lead EKG at 3 hours was interpreted by me heart rate is 57 bpm. It is normal sinus rhythm. There is no evidence of any acute ischemic changes when compared to the one 3 hours ago. I feel this is reasonable for the patient be discharged to home. This is based off the patient reexamination and the discussion I had with the patient's flight security specialist. 10/31/22 16:58 Patient's medical issue is 1 of moderate complexity. The level of complexity and the work-up performed is based on the past medical history, review of the patient's medication list, review of the patient's drug allergy list, history of present illness, physical findings on examination. Work-up included placement of intravenous line, infusion of morphine 4 mg intravenously and Zofran 4 mg intravenously, twelve-lead EKG, CBC, CMP, D-dimer, troponin level. I reviewed the results of the work-up. I did speak with the patient's flight security specialist. The patient fulfills the criteria that the flight security specialist had for the patient to be discharged to home. Patient does have a pneumonia and we will treat him for this as an outpatient with cefdinir. Blood Culture(s) Obtained: No Antibiotics given: Yes Counseled pt/family regarding: lab results, diagnosis, need for follow-up, rad results Medical Desision Making - Discussion of managment Reviewed:: Test results Agreed on:: Treatment plan, need for follow-up - Diagnostic Testing Diagnostic test were ordered, analyzed, and reviewed by me: Yes Radiological Interpretation: Reviewed by me, Teleradiologist Report - Risk of complications The pt has a mod risk of morbidity or mortality based on: Need for prescription drug management - Departure Departure Disposition: Home Clinical Impression: Chest pain, Pulmonary infiltrates on CXR, Elevated troponin Condition: Stable Critical Care Time: No Referrals: CANDY WHITE [Primary Care Provider] - Follow up/PCP as directed Additional Instructions: Take all your medication as prescribed. Follow-up with your flight security specialist tomorrow by phone to make arranges for follow-up appointment in 3 days. Return to the emergency department if symptoms recur. Prescriptions: Cefdinir 300 mg PO BID #14 cap
[2022-10-31] MEDS ORDERED: BABY ASPIRIN 81 MG CHEW PO ONE (12:46)
[2022-10-31] MEDS ORDERED: BABY ASPIRIN 81 MG CHEW ONE (13:10)
--- NOTE | 2022-10-31 13:14 | XRAY ---
Indication: Chest pain and cough. Comparison: April 02, 2021 Portable chest demonstrates new minimal bibasilar hazy interstitial alveolar opacities without consolidation/large effusion. Heart not enlarged. Bony thorax intact again with osteopenia and mild degenerative changes.
[2022-10-31 13:22] LABS: Absolute Neutrophil Ct (ANC) 8.32 x10^3/uL (1.4-6.9); BASOPHIL % 0.3 % (0.0-0.4); Basophil (Absolute #) 0.04 x10^3/uL (0-0.4); Eosinophil % 1.3 % (0.00-5.0); Eosinophil (Absolute #) 0.15 x10^3/uL (0-0.5); Hematocrit 43.7 % (42-50); Hemoglobin 14.8 g/dL (12.5-18.0); IMMATURE GRAN # 0.04 x10^3u/L (0.00-0.03); IMMATURE GRAN % 0.3 % (0.00-0.4); Lymphocyte (Absolute #) 2.63 x10^3/uL (1.0-4.6); Lymphocytes % 22.2 % (24.0-44.0); Mean Cell Volume 93.6 fL (78-100); Mean Corpuscular Hemoglobin 31.7 pg (26-32); Mean Corpuscular Hgb Concent. 33.9 g/dL (32-36); Mean Platelet Volume 9.2 fL (7.5-11.0); Monocyte (Absolute #) 0.68 x10^3/uL (0.0-1.3); Monocytes % 5.7 % (0.0-12.0); Neutrophil % 70.2 % (36.0-66.0); Platelet Count 210 x10^3/uL (150-450); Red Blood Count 4.67 x10^6/uL (4.1-5.6); Red Cell Distribution Width 13.1 % (11.5-14.0); White Blood Count 11.9 x10^3/uL (4.0-10.5)
[2022-10-31] MEDS ORDERED: MORPHINE SULFATE 4 MG INJ IV ONE (13:26)
[2022-10-31] MEDS ORDERED: ROCEPHIN 1 Gm-D5w 50 ml Bag** 1 G/50 ML IVPB IV STA (13:26)
[2022-10-31] MEDS ORDERED: Zofran 4 MG/2 ML VIAL IV ONE (13:26)
[2022-10-31 13:39] LABS: D-DIMER QUANTITATIVE 0.51 mg/L (0.0-0.50); INR 0.95 (0.8-3.0); PROTIME 10.4 SECONDS (9.4-12.5)
[2022-10-31 13:47] LABS: ALBUMIN 4.2 g/dL (3.5-5.0); ANION GAP 14.8 MEQ/L (5-15); BILIRUBIN,TOTAL 0.9 mg/dL (0.2-1.3); Calcium 8.9 mg/dL (8.4-10.2); Creatinine 1 1.35 mg/dL (0.66-1.25); EST GLOMERULAR FILTRATION RATE 55.9 ML/MIN; Potassium 3.3 mmol/L (3.5-5.1); Total Protein 7.5 g/dL (6.3-8.2)
[2022-10-31] MEDS ORDERED: Zofran 4 MG/2 ML VIAL ONE (13:59)
[2022-10-31] MEDS ORDERED: ROCEPHIN 1 Gm-D5w 50 ml Bag** 1 G/50 ML IVPB IV ONE (14:00)
[2022-10-31] MEDS ORDERED: MORPHINE SULFATE 4 MG INJ ONE (14:00)
[2022-10-31] MEDS ORDERED: Klor Con PO ONE ×2 (15:26→15:30)
[2022-10-31 17:12] VITALS: BP 124/68; PULSE 60; O2SAT 96
[2022-10-31 17:36] LABS: INFLUENZA A NEGATIVE (NEGATIVE); INFLUENZA B NEGATIVE (NEGATIVE); RESPIRATORY SYNCTIAL VIRUS NEGATIVE (NEGATIVE); SARS-CoV-2 Xpert Express NEGATIVE (NEGATIVE)
== END 2022-10-31 17:17 | disposition home or self-care (01) ==
LOC: ED 12:34
DX: R07.9 Chest pain, unspecified (principal); R91.8 Other nonspecific abnormal finding of lung field; R77.8 Other specified abnormalities of plasma proteins; I25.10 Atherosclerotic heart disease of native coronary artery without angina pectoris; I10 Essential (primary) hypertension; E78.5 Hyperlipidemia, unspecified; J44.9 Chronic obstructive pulmonary disease, unspecified; Z79.899 Other long term (current) drug therapy; Z72.0 Tobacco use; Z20.828 Contact with and (suspected) exposure to other viral communicable diseases
CPT/HCPCS: 0241U; 36000; 36415; 71045; 80053; 83880; 84484; 85025; 85379; 85610; 93005; 94760; 96374; 96375; 99284; J0696; J2270; J2405; A9270-GY

== ENCOUNTER 2023-03-02 19:54 | Observation (INO) | payer MEDICARE ==
[2023-03-02 20:11] LABS: Absolute Neutrophil Ct (ANC) 6.24 x10^3/uL (1.4-6.9); BASOPHIL % 0.5 % (0.0-0.4); Basophil (Absolute #) 0.04 x10^3/uL (0-0.4); Eosinophil % 1.4 % (0.00-5.0); Eosinophil (Absolute #) 0.12 x10^3/uL (0-0.5); Hematocrit 37.9 % (42-50); Hemoglobin 12.9 g/dL (12.5-18.0); IMMATURE GRAN # 0.08 x10^3u/L (0.00-0.03); IMMATURE GRAN % 0.9 % (0.00-0.4); Lymphocyte (Absolute #) 1.36 x10^3/uL (1.0-4.6); Lymphocytes % 15.4 % (24.0-44.0); Mean Cell Volume 90.7 fL (78-100); Mean Corpuscular Hemoglobin 30.9 pg (26-32); Mean Platelet Volume 8.8 fL (7.5-11.0); Monocyte (Absolute #) 1.01 x10^3/uL (0.0-1.3); Monocytes % 11.4 % (0.0-12.0); Neutrophil % 70.4 % (36.0-66.0); Platelet Count 197 x10^3/uL (150-450); Red Blood Count 4.18 x10^6/uL (4.1-5.6); Red Cell Distribution Width 13.5 % (11.5-14.0); White Blood Count 8.9 x10^3/uL (4.0-10.5)
[2023-03-02 20:25] LABS: ALBUMIN 3.6 g/dL (3.5-5.0); ALKALINE PHOSPHATASE 41 U/L (38-126); ANION GAP 16.8 MEQ/L (5-15); BLOOD UREA NITROGEN 4 mg/dL (9-20); CHLORIDE 93 mmol/L (98-107); Calcium 8.3 mg/dL (8.4-10.2); Carbon Dioxide 19 mmol/L (22-30); Creatinine 1 0.92 mg/dL (0.66-1.25); EST GLOMERULAR FILTRATION RATE > 60.0 ML/MIN; Glucose 133 mg/dL (74-106); LIPASE 60 U/L (23-300); MAGNESIUM 1.9 mg/dL (1.6-2.3); PROTIME 10.9 SECONDS (9.4-12.5); Potassium 3.7 mmol/L (3.5-5.1); SGOT/AST 19 U/L (17-59); SGPT/ALT 19 U/L (0-50); SODIUM 126 mmol/L (137-145); Total Protein 6.2 g/dL (6.3-8.2)
--- NOTE | 2023-03-02 20:28 | ERPHSYRPT ---
- History of Present Illness Time Seen by Provider: 03/02/23 19:59 Historian: patient Exam Limitations: no limitations Patient Subjective Stated Complaint: pt states he has been having intermittent chest pain for approx 1-2 mos. states today pain is consistent and has occa sional sharp chest pains. reports pain is worse with deep inspiration Triage Nursing Assessment: pt alert and oriented, answers questions approp. pt arrive per ambulance and moves to stretcher per self. respirations nonlabored with coarse lung sound noted to rt lower. skin warm, moist. heart rate 92 sinus rhythm with occasional pvc. Physician History: Patient has been having constant chest pain over the last 4 days left side of his chest. Sharp in nature. Is worse when he lays down. Patient also feels congested in his chest consistent with a COPD. Patient has not been evaluated or treated by anyone in the last 4 days. Patient cannot recall his last testing on his heart as has been quite a while. Patient states that the albuterol td tment, aspirin and sublingual nitroglycerin he received from EMS helped his chest pain significantly. Timing/Duration: day(s) (4) Activities at Onset: none Quality: stabbing Chest Pain Radiation: no radiation Severity of Pain-Max: moderate Severity of Pain-Current: mild Modifying Factors: Improves With: nitroglycerin, aspirin, other (Albuterol treatment) Associated Symptoms: shortness of breath, No nausea, No vomiting, No palpitations, No heartburn, No abdominal pain, No cough, No hurts to breathe, No diaphoresis, No chills, No fever, No fatigue, No weakness, No swelling/lump in chest, No syncope, No rash, No headache, No dizziness, No edema, No back pain Prior Chest Pain/Cardiac Workup: no prior cardiac workup Nitro Today/Relief: 0.4 mg x 1, provided by EMS, complete relief Aspirin Treatment Today: 81 mg x 4, provided by EMS Allergies/Adverse Reactions: No Known Drug Allergies Allergy (Verified 03/02/23 20:12) Home Medications: Ipratropium/Albuterol Sulfate [Combivent Respimat Common Canister] 2 puff IH QID PRN 01/05/16 [History] Aspirin EC 81 mg [Ecotrin 81 mg] 81 mg PO DAILY 04/02/21 [History] Atorvastatin Calcium [Lipitor] 80 mg PO DAILY 04/02/21 [History] Carvedilol 12.5 mg [Coreg 12.5 mg] 12.5 mg PO BID 04/02/21 [History] lisinopriL [Lisinopril] 10 mg PO DAILY 04/02/21 [History] Amlodipine Besylate 5 mg [Norvasc 5 mg] 2.5 mg PO DAILY 08/29/22 [History] Isosorbide Mononitrate [Isosorbide Mononitrate ER] 60 mg PO DAILY 10/29/22 [History] Clopidogrel Bisulfate [Clopidogrel] 75 mg PO DAILY 03/02/23 [History] Ranolazine 500 MG [Ranexa 500 MG] 500 mg PO BID 03/02/23 [History] Hx Tetanus, Diphtheria Vaccination/Date Given: No Hx Influenza Vaccination/Date Given: No Hx Pneumococcal Vaccination/Date Given: Yes Immunizations Up to Date: No Travel Risk - International Travel Have you traveled outside of the country in past 3 weeks: No - Coronavirus Screening Are you exhibiting any of the following symptoms?: No Close contact with a COVID-19 positive Pt in past 14-21 Days: No - Vaccine Status Have you recieved a Covid-19 vaccination: Yes 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 - Vaccination Dates Date of 2cond Vaccination (if applicable): unknown - Review of Systems Constitutional: No Fever, No Chills Eyes: No Symptoms, No Discharge, No Eye Pain, No Eye Redness Ears, Nose, & Throat: No Symptoms, No Ear Pain, No Nose Congestion, No Nose Discharge, No Throat Pain, No Painful Swallowing Respiratory: Dyspnea, Wheezing, No Cough Cardiac: Chest Pain, No Edema, No Syncope Abdominal/Gastrointestinal: No Abdominal Pain, No Nausea, No Vomiting, No Diarrhea Genitourinary Symptoms: No Dysuria Musculoskeletal: No Back Pain, No Neck Pain Skin: No Rash Neurological: No Dizziness, No Focal Weakness, No Sensory Changes Psychological: No Symptoms Endocrine: No Symptoms All Other Systems: Reviewed and Negative - Past Medical History Pertinent Past Medical History: Yes Neurological History: Dementia ENT History: No Pertinent History Cardiac History: Angina, Hypertension Respiratory History: COPD, Sleep Apnea Endocrine Medical History: No Pertinent History Musculoskeletal History: Osteoarthritis GI Medical History: GERD History: No Pertinent History Psycho-Social History: No Pertinent History Male Reproductive Disorders: No Pertinent History Other Medical History: restless leg - Past Surgical History Past Surgical History: Yes Neuro Surgical History: No Pertinent History Cardiac: No Pertinent History Respiratory: No Pertinent History Gastrointestinal: Other Genitourinary: No Pertinent History Musculoskeletal: Orthopedic Surgery Male Surgical History: No Pertinent History Other Surgical History: colonoscopy with poypectomy, carpal tunnel, mole removal face and back. right knee scope - Social History Smoking Status: Current every day smoker How long have you smoked: 47yrs Exposure to second hand smoke: Yes Drug Use: none Patient Lives Alone: No Significant Family History: no pertinent family hx - Nursing Vital Signs Nursing Vital Signs: Initial Vital Signs Temperature 98.2 F 03/02/23 19:58 Pulse Rate 95 H 03/02/23 19:58 Respiratory Rate 20 03/02/23 19:58 Blood Pressure 118/65 03/02/23 19:58 O2 Sat by Pulse Oximetry 94 L 03/02/23 19:58 Pain Scale Pain Intensity 4 - Physical Exam General Appearance: no apparent distress, alert Eye Exam: PERRL/EOMI, eyes nml inspection Ears, Nose, Throat Exam: normal ENT inspection, moist mucous membranes Neck Exam: normal inspection, non-tender, supple, full range of motion Respiratory Exam: normal breath sounds, lungs clear, airway intact, wheezing, No respiratory distress, No crackles/rales, No rhonchi, No stridor Cardiovascular Exam: regular rate/rhythm, normal heart sounds, normal peripheral pulses, capillary refill <2 sec Gastrointestinal/Abdomen Exam: soft, No tenderness, No mass Back Exam: normal inspection, No CVA tenderness, No vertebral tenderness Extremity Exam: normal inspection, normal range of motion Neurologic Exam: alert, oriented x 3, cooperative, 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 as tested, normal mood/affect, sensation nml, No motor deficits Skin Exam: normal color, warm, dry SpO2 Interpretation: borderline oxygenation SpO2: 94 O2 Delivery: Nasal Cannula - Course Nursing assessment & vital signs reviewed: Yes EKG Interpreted by Me: RATE (92), Sinus Rhythm, NORMAL AXIS, NORMAL INTERVALS, NORMAL QRS, NORMAL ST-T, Other (Rare PVCs; no significant change in comparison to EKG from October 31, 2022) Ordered Tests: Active Orders 24 hr Category Date Time Status Computer Network Specialist STAT Care 03/02/23 20:00 Active EKG-ER Only STAT Care 03/02/23 19:59 Active CHEST 1 VIEW (PORTABLE) Stat Exams 03/02/23 20:00 Taken CBC W DIFF Stat Lab 03/02/23 20:07 Completed CMP Stat Lab 03/02/23 20:07 Completed LIPASE Stat Lab 03/02/23 20:07 Completed MAGNESIUM Stat Lab 03/02/23 20:07 Completed NT PRO BNPII Stat Lab 03/02/23 20:09 Completed PROTIME WITH INR Stat Lab 03/02/23 20:07 Completed TROPONIN Q4H Lab 03/02/23 20:07 Completed TROPONIN Q4H Lab 03/03/23 00:15 Ordered TROPONIN Q4H Lab 03/03/23 04:15 Ordered VENOUS BLOOD GAS Stat Lab 03/02/23 20:23 Completed Medication Summary Discontinued Medications Generic Name Dose Route Start Last Admin Trade Name Freq PRN Reason Stop Dose Admin Oxycodone/Acetaminophen 1 tab 03/02/23 20:34 03/02/23 20:40 Oxycodone Hcl/Apap 5 Mg/325 Mg Tablet PO 03/02/23 20:35 Not Given STAT STA Lab/Rad Data: Laboratory Result Diagrams 03/02/23 20:07 03/02/23 20:07 Laboratory Results 03/02/23 03/02/23 03/02/23 Range/Units 20:23 20:09 20:07 WBC (4.0-10.5) x10^3/uL RBC (4.1-5.6) x10^6/uL Hgb (12.5-18.0) g/dL Hct (42-50) % MCV (78-100) fL MCH (26-32) pg MCHC (32-36) g/dL RDW (11.5-14.0) % Plt Count (150-450) x10^3/uL MPV (7.5-11.0) fL Gran % (36.0-66.0) % Immature Gran % (Auto) (0.00-0.4) % Nucleat RBC Rel Count (0.00-0.1) % Eos # (Auto) (0-0.5) x10^3/uL Immature Gran # (Auto) (0.00-0.03) x10^3u/L Absolute Lymphs (auto) (1.0-4.6) x10^3/uL Absolute Monos (auto) (0.0-1.3) x10^3/uL Absolute Nucleated RBC (0.00-0.01) x10^3u/L Lymphocytes % (24.0-44.0) % Monocytes % (0.0-12.0) % Eosinophils % (0.00-5.0) % Basophils % (0.0-0.4) % Absolute Granulocytes (1.4-6.9) x10^3/uL Basophils # (0-0.4) x10^3/uL PT (9.4-12.5) SECONDS INR (0.8-3.0) pO2/FiO2 Ratio 21.0 % VBG pH 7.38 (7.32-7.42) VBG pCO2 at Pat Temp 40 L (42-55) mm/Hg VBG pO2 at Pat Temp 68 H (25-40) mm/Hg VBG HCO3 23.7 (22-28) meq/L VBG O2 Sat (Fara) 96.4 (95-100) VBG Base Excess -1.3 (-2.0-2.0) VBG Hemoglobin 13.9 VBG Carboxyhemoglobin 5.6 (0.0-6.9) % T HGB POC Potassium 3.6 (3.5-5.1) Sodium (137-145) mmol/L Potassium (3.5-5.1) mmol/L Chloride (98-107) mmol/L Carbon Dioxide (22-30) mmol/L Anion Gap (5-15) MEQ/L BUN (9-20) mg/dL Creatinine (0.66-1.25) mg/dL Estimated GFR ML/MIN Glucose (74-106) mg/dL Calcium (8.4-10.2) mg/dL Magnesium (1.6-2.3) mg/dL Total Bilirubin (0.2-1.3) mg/dL AST (17-59) U/L ALT (0-50) U/L Alkaline Phosphatase (38-126) U/L Troponin I < 0.012 (0.000-0.034) ng/mL NT-Pro-B Natriuret Pep 60.3 (<300) pg/mL Serum Total Protein (6.3-8.2) g/dL Albumin (3.5-5.0) g/dL Lipase (23-300) U/L 03/02/23 03/02/23 03/02/23 Range/Units 20:07 20:07 20:07 WBC 8.9 (4.0-10.5) x10^3/uL RBC 4.18 (4.1-5.6) x10^6/uL Hgb 12.9 (12.5-18.0) g/dL Hct 37.9 L (42-50) % MCV 90.7 (78-100) fL MCH 30.9 (26-32) pg MCHC 34.0 (32-36) g/dL RDW 13.5 (11.5-14.0) % Plt Count 197 (150-450) x10^3/uL MPV 8.8 (7.5-11.0) fL Gran % 70.4 H (36.0-66.0) % Immature Gran % (Auto) 0.9 H (0.00-0.4) % Nucleat RBC Rel Count 0.0 (0.00-0.1) % Eos # (Auto) 0.12 (0-0.5) x10^3/uL Immature Gran # (Auto) 0.08 H (0.00-0.03) x10^3u/L Absolute Lymphs (auto) 1.36 (1.0-4.6) x10^3/uL Absolute Monos (auto) 1.01 (0.0-1.3) x10^3/uL Absolute Nucleated RBC 0.00 (0.00-0.01) x10^3u/L Lymphocytes % 15.4 L (24.0-44.0) % Monocytes % 11.4 (0.0-12.0) % Eosinophils % 1.4 (0.00-5.0) % Basophils % 0.5 (0.0-0.4) % Absolute Granulocytes 6.24 (1.4-6.9) x10^3/uL Basophils # 0.04 (0-0.4) x10^3/uL PT 10.9 (9.4-12.5) SECONDS INR 1.00 (0.8-3.0) pO2/FiO2 Ratio % VBG pH (7.32-7.42) VBG pCO2 at Pat Temp (42-55) mm/Hg VBG pO2 at Pat Temp (25-40) mm/Hg VBG HCO3 (22-28) meq/L VBG O2 Sat (Fara) (95-100) VBG Base Excess (-2.0-2.0) VBG Hemoglobin VBG Carboxyhemoglobin (0.0-6.9) % T HGB POC Potassium (3.5-5.1) Sodium 126 L (137-145) mmol/L Potassium 3.7 (3.5-5.1) mmol/L Chloride 93 L (98-107) mmol/L Carbon Dioxide 19 L (22-30) mmol/L Anion Gap 16.8 H (5-15) MEQ/L BUN 4 L (9-20) mg/dL Creatinine 0.92 (0.66-1.25) mg/dL Estimated GFR > 60.0 ML/MIN Glucose 133 H (74-106) mg/dL Calcium 8.3 L (8.4-10.2) mg/dL Magnesium 1.9 (1.6-2.3) mg/dL Total Bilirubin 1.70 H (0.2-1.3) mg/dL AST 19 (17-59) U/L ALT 19 (0-50) U/L Alkaline Phosphatase 41 (38-126) U/L Troponin I (0.000-0.034) ng/mL NT-Pro-B Natriuret Pep (<300) pg/mL Serum Total Protein 6.2 L (6.3-8.2) g/dL Albumin 3.6 (3.5-5.0) g/dL Lipase 60 (23-300) U/L - Progress Progress: improved, re-examined Air Movement: good Progress Note: 03/02/23 21:26 Reviewed the patient with Dr. Marion, hospitalist, who accepted the patient for observation for further cardiac monitoring, troponin sequencing and consider testing for his hyperbilirubinemia in the morning with ultrasound 03/02/23 21:33 Patient is in no type of distress, no active chest pain and reviewed with him the plan of admitting him for further monitoring and treatment 03/02/23 21:35 Patient is a 67-year-old male with a history of coronary disease with past non- STEMI on multiple medications to help with unstable anginal type symptoms who comes in with chest pains worsening over the last 4 days. Secondary work-up showed negative chest x-ray, negative EKG for any acute changes and negative troponin with normal proBNP but he did have an elevated total bilirubin from his baseline from 4 months ago, so with his multiple risk factors, patient was discussed with the hospitalist service at [facility] who accept the patient for observation further serial cardiac enzyme testing, consideration of further testing for his hyperbilirubinemia with a fasting ultrasound and determine if patient requires transfer for further testing as patient had improvement with his treatments by EMS with an albuterol treatment, aspirin and sublingual nit roglycerin and he did not require any other management here in the emergency department. Antibiotics given: No Discussed with Dr.: Other (Dr Marion) Will see patient in: hospital (observation) Counseled pt/family regarding: lab results, diagnosis, need for follow-up, rad results, smoking cessation - Departure Departure Disposition: Observation Clinical Impression: Chest pain of uncertain etiology, COPD exacerbation, Hyperbilirubinemia Condition: Fair Critical Care Time: No Referrals: CANDY IQBAL [Primary Care Provider] - Follow up/PCP as directed Instructions: Chronic Obstructive Pulmonary Disease
[2023-03-02 20:29] LABS: VBG BASE EXCESS -1.3 (-2.0-2.0); VBG CARBOXYHEMOGLOBIN 5.6 % T HGB (0.0-6.9); VBG HCO3- 23.7 meq/L (22-28); VBG HEMOGLOBIN 13.9; VBG O2 SATURATION 96.4 (95-100); VBG POTASSIUM 3.6 (3.5-5.1); VBG pH 7.38 (7.32-7.42)
[2023-03-02] MEDS ORDERED: PERCOCET TABLET 5/325MG PO STA (20:34)
[2023-03-02] MEDS ORDERED: DUONEB 0.5-3 MG/3 ml Neb IH ONE (22:14)
[2023-03-02] MEDS: DUONEB 0.5-3 MG/3 ml Neb IH PRN (22:15)
[2023-03-02] MEDS ORDERED: COMBIVENT RESPIMAT COMMON CANISTER IH PRN (22:16)
[2023-03-02] MEDS ORDERED: Sodium Chloride 0.9% 1000 ML 1,000 ML ONE (22:45)
[2023-03-02] MEDS ORDERED: Sodium Chloride 0.9% 1000 ML 1,000 ML IV SCH (22:45)
[2023-03-02] MEDS ORDERED: COREG 12.5 MG PO SCH (22:50)
[2023-03-02] MEDS ORDERED: Ranexa 500 MG PO SCH (22:50)
--- NOTE | 2023-03-02 22:51 | PCM.HP ---
History of Present Illness - Chief Complaint Chief Complaint: Chest Pain, COPD exacerbation, Hyperbilirubinemia History of Present Illness: 67 yo wm with hx of CAD(PCI to LAD 3 years ago), COPD, HLP presents with sob for 3 days. Pt denies cough. Denies fevers. Pt noted mild chest tightness. Pain diffuse across chest and some sharpness on left side. Pt states pain different compared to stable angina 3 years ago. He does not chest pain at times when exerting himself. Pt denies poor po intake. Denies new medications. - Review of Systems Constitutional: No Symptoms Eyes: No Symptoms Ears, Nose, & Throat: No Symptoms Respiratory: Cough, Short Of Breath Cardiac: Chest Pain Abdominal/Gastrointestinal: No Symptoms Genitourinary Symptoms: No Symptoms Musculoskeletal: No Symptoms Skin: No Symptoms Neurological: No Symptoms Psychological: No Symptoms Endocrine: No Symptoms Hematologic/Lymphatic: No Symptoms Immunological/Allergic: No Symptoms Medications & Allergies Home Medications: Home Medication List Nitroglycerin [Nitrostat] 1 tab SL UD #1 bottle 11/28/14 [Rx Confirmed 03/02/23] Ipratropium/Albuterol Sulfate [Combivent Respimat Common Canister] 2 puff IH QID PRN 01/05/16 [History Confirmed 03/02/23] Aspirin EC 81 mg [Ecotrin 81 mg] 81 mg PO DAILY 04/02/21 [History Confirmed 03/02/23] Atorvastatin Calcium [Lipitor] 80 mg PO DAILY 04/02/21 [History Confirmed 03/02/23] Carvedilol 12.5 mg [Coreg 12.5 mg] 12.5 mg PO BID 04/02/21 [History Confirmed 03/02/23] lisinopriL [Lisinopril] 10 mg PO DAILY 04/02/21 [History Confirmed 03/02/23] Amlodipine Besylate 5 mg [Norvasc 5 mg] 2.5 mg PO DAILY 08/29/22 [History Confirmed 03/02/23] Isosorbide Mononitrate [Isosorbide Mononitrate ER] 60 mg PO DAILY 10/29/22 [History Confirmed 03/02/23] Clopidogrel Bisulfate [Clopidogrel] 75 mg PO DAILY 03/02/23 [History Confirmed 03/02/23] Ranolazine 500 MG [Ranexa 500 MG] 500 mg PO BID 03/02/23 [History Confirmed 03/02/23] Allergies/Adverse Reactions: Allergies Allergy/AdvReac Type Severity Reaction Status Date / Time No Known Drug Allergies Allergy Verified 03/02/23 20:12 - Past Medical History Past Medical History: Yes Neurological History: Dementia ENT History: No Pertinent History Cardiac History: Angina, Hypertension Respiratory History: COPD, Sleep Apnea Endocrine Medical History: No Pertinent History Musculoskelatal History: Osteoarthritis GI Medical History: GERD History: No Pertinent History Pyscho-Social History: No Pertinent History Male Reproductive Disorders: No Pertinent History Comment: restless leg - Past Surgical History Past Surgical History: Yes Neuro Surgical History: No Pertinent History Cardiac History: Cardiac Stent Respiratory Surgery: No Pertinent History GI Surgical History: Other Genitourinary Surgical Hx: No Pertinent History Musculskeletal Surgical Hx: Orthopedic Surgery Male Surgical History: No Pertinent History Other Surgical History: colonoscopy with poylpectomy, carpal tunnel, mole removal face and back. right knee scope - Social History Smoking Status: Current every day smoker How long have you smoked: 47yrs Exposure to second hand smoke: Yes Alcohol: None Drug Use: none Significant Family History: no pertinent family hx - Physical Exam Vital Signs: Vital Signs - 24 hr Temp Pulse Pulse Resp BP BP Pulse Ox 03/02/23 22:15 74 18 92 L 03/02/23 22:06 97.7 F 93 H 19 116/63 93 L 03/02/23 21:36 94 L 03/02/23 21:00 73 29 H 115/60 94 L 03/02/23 20:00 75 24 123/68 92 L 03/02/23 19:58 98.2 F 95 H 92 H 20 118/65 94 L General Appearance: no apparent distress Neurologic Exam: alert, oriented x 3, cooperative Eye Exam: PERRL/EOMI, eyes nml inspection Ears, Nose, Throat Exam: normal ENT inspection Neck Exam: normal inspection Respiratory Exam: normal breath sounds, diminished breath sounds Cardiovascular Exam: regular rate/rhythm Gastrointestinal/Abdomen Exam: soft, normal bowel sounds, No tenderness Back Exam: normal inspection Extremity Exam: normal inspection, normal range of motion, No pedal edema, No swelling Skin Exam: normal color, warm, No dry Results - Labs Lab/Micro Results: Lab Results-Last 24 Hours 03/02/23 03/02/23 03/02/23 Range/Units 20:07 20:07 20:07 WBC 8.9 (4.0-10.5) x10^3/uL RBC 4.18 (4.1-5.6) x10^6/uL Hgb 12.9 (12.5-18.0) g/dL Hct 37.9 L (42-50) % MCV 90.7 (78-100) fL MCH 30.9 (26-32) pg MCHC 34.0 (32-36) g/dL RDW 13.5 (11.5-14.0) % Plt Count 197 (150-450) x10^3/uL MPV 8.8 (7.5-11.0) fL Gran % 70.4 H (36.0-66.0) % Immature Gran % (Auto) 0.9 H (0.00-0.4) % Nucleat RBC Rel Count 0.0 (0.00-0.1) % Eos # (Auto) 0.12 (0-0.5) x10^3/uL Immature Gran # (Auto) 0.08 H (0.00-0.03) x10^3u/L Absolute Lymphs (auto) 1.36 (1.0-4.6) x10^3/uL Absolute Monos (auto) 1.01 (0.0-1.3) x10^3/uL Absolute Nucleated RBC 0.00 (0.00-0.01) x10^3u/L Lymphocytes % 15.4 L (24.0-44.0) % Monocytes % 11.4 (0.0-12.0) % Eosinophils % 1.4 (0.00-5.0) % Basophils % 0.5 (0.0-0.4) % Absolute Granulocytes 6.24 (1.4-6.9) x10^3/uL Basophils # 0.04 (0-0.4) x10^3/uL PT 10.9 (9.4-12.5) SECONDS INR 1.00 (0.8-3.0) pO2/FiO2 Ratio % VBG pH (7.32-7.42) VBG pCO2 at Pat Temp (42-55) mm/Hg VBG pO2 at Pat Temp (25-40) mm/Hg VBG HCO3 (22-28) meq/L VBG O2 Sat (Fara) (95-100) VBG Base Excess (-2.0-2.0) VBG Hemoglobin VBG Carboxyhemoglobin (0.0-6.9) % T HGB POC Potassium (3.5-5.1) Sodium 126 L (137-145) mmol/L Potassium 3.7 (3.5-5.1) mmol/L Chloride 93 L (98-107) mmol/L Carbon Dioxide 19 L (22-30) mmol/L Anion Gap 16.8 H (5-15) MEQ/L BUN 4 L (9-20) mg/dL Creatinine 0.92 (0.66-1.25) mg/dL Estimated GFR > 60.0 ML/MIN Glucose 133 H (74-106) mg/dL Calcium 8.3 L (8.4-10.2) mg/dL Magnesium 1.9 (1.6-2.3) mg/dL Total Bilirubin 1.70 H (0.2-1.3) mg/dL AST 19 (17-59) U/L ALT 19 (0-50) U/L Alkaline Phosphatase 41 (38-126) U/L Troponin I (0.000-0.034) ng/mL NT-Pro-B Natriuret Pep (<300) pg/mL Serum Total Protein 6.2 L (6.3-8.2) g/dL Albumin 3.6 (3.5-5.0) g/dL Lipase 60 (23-300) U/L 03/02/23 03/02/23 03/02/23 Range/Units 20:07 20:09 20:23 WBC (4.0-10.5) x10^3/uL RBC (4.1-5.6) x10^6/uL Hgb (12.5-18.0) g/dL Hct (42-50) % MCV (78-100) fL MCH (26-32) pg MCHC (32-36) g/dL RDW (11.5-14.0) % Plt Count (150-450) x10^3/uL MPV (7.5-11.0) fL Gran % (36.0-66.0) % Immature Gran % (Auto) (0.00-0.4) % Nucleat RBC Rel Count (0.00-0.1) % Eos # (Auto) (0-0.5) x10^3/uL Immature Gran # (Auto) (0.00-0.03) x10^3u/L Absolute Lymphs (auto) (1.0-4.6) x10^3/uL Absolute Monos (auto) (0.0-1.3) x10^3/uL Absolute Nucleated RBC (0.00-0.01) x10^3u/L Lymphocytes % (24.0-44.0) % Monocytes % (0.0-12.0) % Eosinophils % (0.00-5.0) % Basophils % (0.0-0.4) % Absolute Granulocytes (1.4-6.9) x10^3/uL Basophils # (0-0.4) x10^3/uL PT (9.4-12.5) SECONDS INR (0.8-3.0) pO2/FiO2 Ratio 21.0 % VBG pH 7.38 (7.32-7.42) VBG pCO2 at Pat Temp 40 L (42-55) mm/Hg VBG pO2 at Pat Temp 68 H (25-40) mm/Hg VBG HCO3 23.7 (22-28) meq/L VBG O2 Sat (Fara) 96.4 (95-100) VBG Base Excess -1.3 (-2.0-2.0) VBG Hemoglobin 13.9 VBG Carboxyhemoglobin 5.6 (0.0-6.9) % T HGB POC Potassium 3.6 (3.5-5.1) Sodium (137-145) mmol/L Potassium (3.5-5.1) mmol/L Chloride (98-107) mmol/L Carbon Dioxide (22-30) mmol/L Anion Gap (5-15) MEQ/L BUN (9-20) mg/dL Creatinine (0.66-1.25) mg/dL Estimated GFR ML/MIN Glucose (74-106) mg/dL Calcium (8.4-10.2) mg/dL Magnesium (1.6-2.3) mg/dL Total Bilirubin (0.2-1.3) mg/dL AST (17-59) U/L ALT (0-50) U/L Alkaline Phosphatase (38-126) U/L Troponin I < 0.012 (0.000-0.034) ng/mL NT-Pro-B Natriuret Pep 60.3 (<300) pg/mL Serum Total Protein (6.3-8.2) g/dL Albumin (3.5-5.0) g/dL Lipase (23-300) U/L - Radiology Impressions Radiology Exams & Impressions: Radiology Procedures Category Date Time Status CHEST 1 VIEW (PORTABLE) Stat Exams 03/02/23 20:00 Taken - Other Procedures and Tests Respiratory Therapy 03/02/23 22:38 Respiratory Therapy Assessment DAILY Assessment/Plan (1) COPD exacerbation Current Visit: Yes Status: Acute Assessment & Plan: 1. Chest pain: atypical. Not like prior anginal episodes in past. ECG unre vealing. Trop :-. Continue asa. Continue rule out. 2. COPD exac: Add nebs. Pred burst for 5 days. 3. Hyponatremia: ? hypovolemic with insensible losses. Check urine lytes/osm. Start Saline. Na in 4 hours. 4. FEN: oral diet 5. Hyperlipidemia: Check Lipids in am 6. PX: Lovenox. Reginald Marion MD entire encounter done via telemedicine. Code(s): J44.1 - CHRONIC OBSTRUCTIVE PULMONARY DISEASE W (ACUTE) EXACERBATION Telemedicine Encounter - Telemedicine Encounter Telemedicine Encounter: The entirety of this encounter was performed via Telemedicine"
[2023-03-02] MEDS: DELTASONE 20 MG PO SCH (23:04)
[2023-03-02] MEDS: COREG 12.5 MG PO SCH (23:08)
[2023-03-02] MEDS: Ranexa 500 MG PO SCH (23:08)
[2023-03-03] MEDS ORDERED: DUONEB 0.5-3 MG/3 ml Neb IH SCH (01:00)
[2023-03-03 03:28] LABS: Absolute Neutrophil Ct (ANC) 8.38 x10^3/uL (1.4-6.9); BASOPHIL % 0.2 % (0.0-0.4); Basophil (Absolute #) 0.02 x10^3/uL (0-0.4); Eosinophil % 0.6 % (0.00-5.0); Eosinophil (Absolute #) 0.06 x10^3/uL (0-0.5); Hematocrit 38.1 % (42-50); Hemoglobin 12.9 g/dL (12.5-18.0); IMMATURE GRAN # 0.08 x10^3u/L (0.00-0.03); IMMATURE GRAN % 0.8 % (0.00-0.4); Lymphocyte (Absolute #) 0.68 x10^3/uL (1.0-4.6); Lymphocytes % 7.1 % (24.0-44.0); Mean Cell Volume 90.1 fL (78-100); Mean Corpuscular Hemoglobin 30.5 pg (26-32); Mean Corpuscular Hgb Concent. 33.9 g/dL (32-36); Mean Platelet Volume 8.4 fL (7.5-11.0); Monocyte (Absolute #) 0.34 x10^3/uL (0.0-1.3); Monocytes % 3.6 % (0.0-12.0); Neutrophil % 87.7 % (36.0-66.0); Platelet Count 166 x10^3/uL (150-450); Red Blood Count 4.23 x10^6/uL (4.1-5.6); Red Cell Distribution Width 13.2 % (11.5-14.0); White Blood Count 9.6 x10^3/uL (4.0-10.5)
[2023-03-03 03:37] LABS: ANION GAP 12.4 MEQ/L (5-15); BLOOD UREA NITROGEN 4 mg/dL (9-20); CHLORIDE 95 mmol/L (98-107); Calcium 8.2 mg/dL (8.4-10.2); Carbon Dioxide 23 mmol/L (22-30); Creatinine 1 0.77 mg/dL (0.66-1.25); EST GLOMERULAR FILTRATION RATE > 60.0 ML/MIN; Glucose 121 mg/dL (74-106); Potassium 4.6 mmol/L (3.5-5.1); SODIUM 126 mmol/L (137-145)
[2023-03-03 03:49] LABS: Appearance Clear (Clear); Bacteria None Seen /HPF (None Seen); Bilirubin Negative (Negative); Blood Negative (Negative); Epithelial Cells None Seen /HPF (None Seen); Glucose, Urine Negative (Negative); Hyaline Casts NONE SEEN /LPF (0-2); Ketones Negative (Negative); Leukocyte Esterase Negative (Negative); Nitrite Negative (Negative); Ph 6.5 (4.6-8.0); Protein,Urine Dip Negative (Negative); RBC 0-2 /HPF (0-5); WBC 0-2 /HPF (0-5)
[2023-03-03 03:50] LABS: ADD URINE CULTURE? NO (NO)
[2023-03-03 04:15] LABS: Risk Ratio 3.1; TSH, 3RD Generation 0.499 mIU/L (0.47-4.68)
--- NOTE | 2023-03-03 05:32 | PCM.NOTE ---
Date and Time: 03/03/23526 Subjective Assessment: Mr. Tristan is a 67 year old male with a pmhx of AD(PCI to LAD 3 years ago), COPD, HLP who presented 03/02/23 with three days of sob and mild diffuse left chest tightness with sharp pain admitted for COPD exacerbation, atypical chest pain, and hyponatremia. In ER, patient was at 92% spo2 on RA which improved to 98% with 2l NC. Lab findings were significant for sodium levels of 126. No overnight events noted. Endorses improvement of sob, no longer with chest tightness/pain. Sodium levels slowly improving now at 128. Will continue IVF with BMP Q4H. - Review of Systems Eyes: No Symptoms Ears, Nose, & Throat: No Symptoms Respiratory: Wheezing Cardiac: No Symptoms Abdominal/Gastrointestinal: No Symptoms Genitourinary Symptoms: No Symptoms Musculoskeletal: No Symptoms Skin: No Symptoms Neurological: No Symptoms Psychological: No Symptoms Objective Exam General Appearance: no apparent distress Neurologic Exam: alert, oriented x 3, cooperative Skin Exam: normal color Eye Exam: PERRL Respiratory Exam: diminished breath sounds (On baseline RA), wheezing Cardiovascular Exam: regular rate/rhythm, normal heart sounds Gastrointestinal/Abdomen Exam: soft, normal bowel sounds Extremity Exam: normal inspection OBJECTIVE DATA Vital Signs: Vital Signs - 24 hr Temp Pulse Pulse Resp BP BP Pulse Ox 03/03/23 03:47 97.8 F 65 13 101/59 98 03/03/23 00:00 63 95 03/02/23 22:15 74 18 92 L 03/02/23 22:06 97.7 F 93 H 19 116/63 93 L 03/02/23 21:40 69 03/02/23 21:36 94 L 03/02/23 21:00 73 29 H 115/60 94 L 03/02/23 20:00 75 24 123/68 92 L 03/02/23 19:58 98.2 F 95 H 92 H 20 118/65 94 L Pain Assessment - Last Documented Pain Intensity 4 Intake and Output: Intake & Output 02/28/23 03/01/23 03/02/23 03/03/23 11:59 11:59 11:59 11:59 Intake Total 563 Output Total 450 Balance 113 Weight 83.5 kg Lab Results: Lab Results-Last 24 Hours 03/02/23 03/02/23 03/02/23 Range/Units 03:23 03:23 03:23 WBC (4.0-10.5) x10^3/uL RBC (4.1-5.6) x10^6/uL Hgb (12.5-18.0) g/dL Hct (42-50) % MCV (78-100) fL MCH (26-32) pg MCHC (32-36) g/dL RDW (11.5-14.0) % Plt Count (150-450) x10^3/uL MPV (7.5-11.0) fL Gran % (36.0-66.0) % Immature Gran % (Auto) (0.00-0.4) % Nucleat RBC Rel Count (0.00-0.1) % Eos # (Auto) (0-0.5) x10^3/uL Immature Gran # (Auto) (0.00-0.03) x10^3u/L Absolute Lymphs (auto) (1.0-4.6) x10^3/uL Absolute Monos (auto) (0.0-1.3) x10^3/uL Absolute Nucleated RBC (0.00-0.01) x10^3u/L Lymphocytes % (24.0-44.0) % Monocytes % (0.0-12.0) % Eosinophils % (0.00-5.0) % Basophils % (0.0-0.4) % Absolute Granulocytes (1.4-6.9) x10^3/uL Basophils # (0-0.4) x10^3/uL PT (9.4-12.5) SECONDS INR (0.8-3.0) pO2/FiO2 Ratio % VBG pH (7.32-7.42) VBG pCO2 at Pat Temp (42-55) mm/Hg VBG pO2 at Pat Temp (25-40) mm/Hg VBG HCO3 (22-28) meq/L VBG O2 Sat (Fara) (95-100) VBG Base Excess (-2.0-2.0) VBG Hemoglobin VBG Carboxyhemoglobin (0.0-6.9) % T HGB POC Potassium (3.5-5.1) Sodium (137-145) mmol/L Potassium (3.5-5.1) mmol/L Chloride (98-107) mmol/L Carbon Dioxide (22-30) mmol/L Anion Gap (5-15) MEQ/L BUN (9-20) mg/dL Creatinine (0.66-1.25) mg/dL Estimated GFR ML/MIN Glucose (74-106) mg/dL Lactic Acid (0.4-2.0) Calcium (8.4-10.2) mg/dL Magnesium (1.6-2.3) mg/dL Total Bilirubin (0.2-1.3) mg/dL AST (17-59) U/L ALT (0-50) U/L Alkaline Phosphatase (38-126) U/L Troponin I (0.000-0.034) ng/mL NT-Pro-B Natriuret Pep (<300) pg/mL Serum Total Protein (6.3-8.2) g/dL Albumin (3.5-5.0) g/dL Triglycerides (30-150) mg/dL Cholesterol (50-200) mg/dL LDL Cholesterol (30-100) mg/dL HDL Cholesterol (40-60) mg/dL Heart Disease Risk Ratio Lipase (23-300) U/L TSH 3rd Generation (0.47-4.68) mIU/L Urine Color Yellow (Yellow) Urine Appearance Clear (Clear) Urine pH 6.5 (4.6-8.0) Ur Specific [place] 1.010 (1.005-1.030) Urine Protein Negative (Negative) Urine Glucose (UA) Negative (Negative) mg/dL Urine Ketones Negative (Negative) Urine Blood Negative (Negative) Urine Nitrite Negative (Negative) Urine Bilirubin Negative (Negative) Urine Urobilinogen 1.0 A (0.2) mg/dL Ur Leukocyte Esterase Negative (Negative) U Hyaline Cast (Auto) NONE SEEN (0-2) /LPF Urine Microscopic RBC 0-2 (0-5) /HPF Urine Microscopic WBC 0-2 (0-5) /HPF Ur Epithelial Cells None Seen (None Seen) /HPF Urine Bacteria None Seen (None Seen) /HPF Urine Culture Reflexed NO (NO) Ur Random Creatinine 110.2 MG/DL Urine Sodium 38 (30-90) mmol/L 03/02/23 03/02/23 03/02/23 Range/Units 20:07 20:07 20:07 WBC 8.9 (4.0-10.5) x10^3/uL RBC 4.18 (4.1-5.6) x10^6/uL Hgb 12.9 (12.5-18.0) g/dL Hct 37.9 L (42-50) % MCV 90.7 (78-100) fL MCH 30.9 (26-32) pg MCHC 34.0 (32-36) g/dL RDW 13.5 (11.5-14.0) % Plt Count 197 (150-450) x10^3/uL MPV 8.8 (7.5-11.0) fL Gran % 70.4 H (36.0-66.0) % Immature Gran % (Auto) 0.9 H (0.00-0.4) % Nucleat RBC Rel Count 0.0 (0.00-0.1) % Eos # (Auto) 0.12 (0-0.5) x10^3/uL Immature Gran # (Auto) 0.08 H (0.00-0.03) x10^3u/L Absolute Lymphs (auto) 1.36 (1.0-4.6) x10^3/uL Absolute Monos (auto) 1.01 (0.0-1.3) x10^3/uL Absolute Nucleated RBC 0.00 (0.00-0.01) x10^3u/L Lymphocytes % 15.4 L (24.0-44.0) % Monocytes % 11.4 (0.0-12.0) % Eosinophils % 1.4 (0.00-5.0) % Basophils % 0.5 (0.0-0.4) % Absolute Granulocytes 6.24 (1.4-6.9) x10^3/uL Basophils # 0.04 (0-0.4) x10^3/uL PT 10.9 (9.4-12.5) SECONDS INR 1.00 (0.8-3.0) pO2/FiO2 Ratio % VBG pH (7.32-7.42) VBG pCO2 at Pat Temp (42-55) mm/Hg VBG pO2 at Pat Temp (25-40) mm/Hg VBG HCO3 (22-28) meq/L VBG O2 Sat (Fara) (95-100) VBG Base Excess (-2.0-2.0) VBG Hemoglobin VBG Carboxyhemoglobin (0.0-6.9) % T HGB POC Potassium (3.5-5.1) Sodium 126 L (137-145) mmol/L Potassium 3.7 (3.5-5.1) mmol/L Chloride 93 L (98-107) mmol/L Carbon Dioxide 19 L (22-30) mmol/L Anion Gap 16.8 H (5-15) MEQ/L BUN 4 L (9-20) mg/dL Creatinine 0.92 (0.66-1.25) mg/dL Estimated GFR > 60.0 ML/MIN Glucose 133 H (74-106) mg/dL Lactic Acid (0.4-2.0) Calcium 8.3 L (8.4-10.2) mg/dL Magnesium 1.9 (1.6-2.3) mg/dL Total Bilirubin 1.70 H (0.2-1.3) mg/dL AST 19 (17-59) U/L ALT 19 (0-50) U/L Alkaline Phosphatase 41 (38-126) U/L Troponin I (0.000-0.034) ng/mL NT-Pro-B Natriuret Pep (<300) pg/mL Serum Total Protein 6.2 L (6.3-8.2) g/dL Albumin 3.6 (3.5-5.0) g/dL Triglycerides (30-150) mg/dL Cholesterol (50-200) mg/dL LDL Cholesterol (30-100) mg/dL HDL Cholesterol (40-60) mg/dL Heart Disease Risk Ratio Lipase 60 (23-300) U/L TSH 3rd Generation (0.47-4.68) mIU/L Urine Color (Yellow) Urine Appearance (Clear) Urine pH (4.6-8.0) Ur Specific [place] (1.005-1.030) Urine Protein (Negative) Urine Glucose (UA) (Negative) mg/dL Urine Ketones (Negative) Urine Blood (Negative) Urine Nitrite (Negative) Urine Bilirubin (Negative) Urine Urobilinogen (0.2) mg/dL Ur Leukocyte Esterase (Negative) U Hyaline Cast (Auto) (0-2) /LPF Urine Microscopic RBC (0-5) /HPF Urine Microscopic WBC (0-5) /HPF Ur Epithelial Cells (None Seen) /HPF Urine Bacteria (None Seen) /HPF Urine Culture Reflexed (NO) Ur Random Creatinine MG/DL Urine Sodium (30-90) mmol/L 03/02/23 03/02/23 03/02/23 Range/Units 20:07 20:09 20:23 WBC (4.0-10.5) x10^3/uL RBC (4.1-5.6) x10^6/uL Hgb (12.5-18.0) g/dL Hct (42-50) % MCV (78-100) fL MCH (26-32) pg MCHC (32-36) g/dL RDW (11.5-14.0) % Plt Count (150-450) x10^3/uL MPV (7.5-11.0) fL Gran % (36.0-66.0) % Immature Gran % (Auto) (0.00-0.4) % Nucleat RBC Rel Count (0.00-0.1) % Eos # (Auto) (0-0.5) x10^3/uL Immature Gran # (Auto) (0.00-0.03) x10^3u/L Absolute Lymphs (auto) (1.0-4.6) x10^3/uL Absolute Monos (auto) (0.0-1.3) x10^3/uL Absolute Nucleated RBC (0.00-0.01) x10^3u/L Lymphocytes % (24.0-44.0) % Monocytes % (0.0-12.0) % Eosinophils % (0.00-5.0) % Basophils % (0.0-0.4) % Absolute Granulocytes (1.4-6.9) x10^3/uL Basophils # (0-0.4) x10^3/uL PT (9.4-12.5) SECONDS INR (0.8-3.0) pO2/FiO2 Ratio 21.0 % VBG pH 7.38 (7.32-7.42) VBG pCO2 at Pat Temp 40 L (42-55) mm/Hg VBG pO2 at Pat Temp 68 H (25-40) mm/Hg VBG HCO3 23.7 (22-28) meq/L VBG O2 Sat (Fara) 96.4 (95-100) VBG Base Excess -1.3 (-2.0-2.0) VBG Hemoglobin 13.9 VBG Carboxyhemoglobin 5.6 (0.0-6.9) % T HGB POC Potassium 3.6 (3.5-5.1) Sodium (137-145) mmol/L Potassium (3.5-5.1) mmol/L Chloride (98-107) mmol/L Carbon Dioxide (22-30) mmol/L Anion Gap (5-15) MEQ/L BUN (9-20) mg/dL Creatinine (0.66-1.25) mg/dL Estimated GFR ML/MIN Glucose (74-106) mg/dL Lactic Acid (0.4-2.0) Calcium (8.4-10.2) mg/dL Magnesium (1.6-2.3) mg/dL Total Bilirubin (0.2-1.3) mg/dL AST (17-59) U/L ALT (0-50) U/L Alkaline Phosphatase (38-126) U/L Troponin I < 0.012 (0.000-0.034) ng/mL NT-Pro-B Natriuret Pep 60.3 (<300) pg/mL Serum Total Protein (6.3-8.2) g/dL Albumin (3.5-5.0) g/dL Triglycerides (30-150) mg/dL Cholesterol (50-200) mg/dL LDL Cholesterol (30-100) mg/dL HDL Cholesterol (40-60) mg/dL Heart Disease Risk Ratio Lipase (23-300) U/L TSH 3rd Generation (0.47-4.68) mIU/L Urine Color (Yellow) Urine Appearance (Clear) Urine pH (4.6-8.0) Ur Specific [place] (1.005-1.030) Urine Protein (Negative) Urine Glucose (UA) (Negative) mg/dL Urine Ketones (Negative) Urine Blood (Negative) Urine Nitrite (Negative) Urine Bilirubin (Negative) Urine Urobilinogen (0.2) mg/dL Ur Leukocyte Esterase (Negative) U Hyaline Cast (Auto) (0-2) /LPF Urine Microscopic RBC (0-5) /HPF Urine Microscopic WBC (0-5) /HPF Ur Epithelial Cells (None Seen) /HPF Urine Bacteria (None Seen) /HPF Urine Culture Reflexed (NO) Ur Random Creatinine MG/DL Urine Sodium (30-90) mmol/L 03/03/23 03/03/23 03/03/23 Range/Units 00:32 03:16 03:18 WBC (4.0-10.5) x10^3/uL RBC (4.1-5.6) x10^6/uL Hgb (12.5-18.0) g/dL Hct (42-50) % MCV (78-100) fL MCH (26-32) pg MCHC (32-36) g/dL RDW (11.5-14.0) % Plt Count (150-450) x10^3/uL MPV (7.5-11.0) fL Gran % (36.0-66.0) % Immature Gran % (Auto) (0.00-0.4) % Nucleat RBC Rel Count (0.00-0.1) % Eos # (Auto) (0-0.5) x10^3/uL Immature Gran # (Auto) (0.00-0.03) x10^3u/L Absolute Lymphs (auto) (1.0-4.6) x10^3/uL Absolute Monos (auto) (0.0-1.3) x10^3/uL Absolute Nucleated RBC (0.00-0.01) x10^3u/L Lymphocytes % (24.0-44.0) % Monocytes % (0.0-12.0) % Eosinophils % (0.00-5.0) % Basophils % (0.0-0.4) % Absolute Granulocytes (1.4-6.9) x10^3/uL Basophils # (0-0.4) x10^3/uL PT (9.4-12.5) SECONDS INR (0.8-3.0) pO2/FiO2 Ratio % VBG pH (7.32-7.42) VBG pCO2 at Pat Temp (42-55) mm/Hg VBG pO2 at Pat Temp (25-40) mm/Hg VBG HCO3 (22-28) meq/L VBG O2 Sat (Fara) (95-100) VBG Base Excess (-2.0-2.0) VBG Hemoglobin VBG Carboxyhemoglobin (0.0-6.9) % T HGB POC Potassium (3.5-5.1) Sodium 126 L (137-145) mmol/L Potassium 4.6 D (3.5-5.1) mmol/L Chloride 95 L (98-107) mmol/L Carbon Dioxide 23 (22-30) mmol/L Anion Gap 12.4 (5-15) MEQ/L BUN 4 L (9-20) mg/dL Creatinine 0.77 (0.66-1.25) mg/dL Estimated GFR > 60.0 ML/MIN Glucose 121 H (74-106) mg/dL Lactic Acid (0.4-2.0) Calcium 8.2 L (8.4-10.2) mg/dL Magnesium (1.6-2.3) mg/dL Total Bilirubin (0.2-1.3) mg/dL AST (17-59) U/L ALT (0-50) U/L Alkaline Phosphatase (38-126) U/L Troponin I < 0.012 < 0.012 (0.000-0.034) ng/mL NT-Pro-B Natriuret Pep (<300) pg/mL Serum Total Protein (6.3-8.2) g/dL Albumin (3.5-5.0) g/dL Triglycerides (30-150) mg/dL Cholesterol (50-200) mg/dL LDL Cholesterol (30-100) mg/dL HDL Cholesterol (40-60) mg/dL Heart Disease Risk Ratio Lipase (23-300) U/L TSH 3rd Generation (0.47-4.68) mIU/L Urine Color (Yellow) Urine Appearance (Clear) Urine pH (4.6-8.0) Ur Specific [place] (1.005-1.030) Urine Protein (Negative) Urine Glucose (UA) (Negative) mg/dL Urine Ketones (Negative) Urine Blood (Negative) Urine Nitrite (Negative) Urine Bilirubin (Negative) Urine Urobilinogen (0.2) mg/dL Ur Leukocyte Esterase (Negative) U Hyaline Cast (Auto) (0-2) /LPF Urine Microscopic RBC (0-5) /HPF Urine Microscopic WBC (0-5) /HPF Ur Epithelial Cells (None Seen) /HPF Urine Bacteria (None Seen) /HPF Urine Culture Reflexed (NO) Ur Random Creatinine MG/DL Urine Sodium (30-90) mmol/L 03/03/23 03/03/23 03/03/23 Range/Units 03:18 03:18 03:18 WBC 9.6 (4.0-10.5) x10^3/uL RBC 4.23 (4.1-5.6) x10^6/uL Hgb 12.9 (12.5-18.0) g/dL Hct 38.1 L (42-50) % MCV 90.1 (78-100) fL MCH 30.5 (26-32) pg MCHC 33.9 (32-36) g/dL RDW 13.2 (11.5-14.0) % Plt Count 166 (150-450) x10^3/uL MPV 8.4 (7.5-11.0) fL Gran % 87.7 H (36.0-66.0) % Immature Gran % (Auto) 0.8 H (0.00-0.4) % Nucleat RBC Rel Count 0.0 (0.00-0.1) % Eos # (Auto) 0.06 (0-0.5) x10^3/uL Immature Gran # (Auto) 0.08 H (0.00-0.03) x10^3u/L Absolute Lymphs (auto) 0.68 L (1.0-4.6) x10^3/uL Absolute Monos (auto) 0.34 (0.0-1.3) x10^3/uL Absolute Nucleated RBC 0.00 (0.00-0.01) x10^3u/L Lymphocytes % 7.1 L (24.0-44.0) % Monocytes % 3.6 (0.0-12.0) % Eosinophils % 0.6 (0.00-5.0) % Basophils % 0.2 (0.0-0.4) % Absolute Granulocytes 8.38 H (1.4-6.9) x10^3/uL Basophils # 0.02 (0-0.4) x10^3/uL PT (9.4-12.5) SECONDS INR (0.8-3.0) pO2/FiO2 Ratio % VBG pH (7.32-7.42) VBG pCO2 at Pat Temp (42-55) mm/Hg VBG pO2 at Pat Temp (25-40) mm/Hg VBG HCO3 (22-28) meq/L VBG O2 Sat (Fara) (95-100) VBG Base Excess (-2.0-2.0) VBG Hemoglobin VBG Carboxyhemoglobin (0.0-6.9) % T HGB POC Potassium (3.5-5.1) Sodium (137-145) mmol/L Potassium (3.5-5.1) mmol/L Chloride (98-107) mmol/L Carbon Dioxide (22-30) mmol/L Anion Gap (5-15) MEQ/L BUN (9-20) mg/dL Creatinine (0.66-1.25) mg/dL Estimated GFR ML/MIN Glucose (74-106) mg/dL Lactic Acid 1.5 (0.4-2.0) Calcium (8.4-10.2) mg/dL Magnesium (1.6-2.3) mg/dL Total Bilirubin (0.2-1.3) mg/dL AST (17-59) U/L ALT (0-50) U/L Alkaline Phosphatase (38-126) U/L Troponin I (0.000-0.034) ng/mL NT-Pro-B Natriuret Pep (<300) pg/mL Serum Total Protein (6.3-8.2) g/dL Albumin (3.5-5.0) g/dL Triglycerides 89 (30-150) mg/dL Cholesterol 113 (50-200) mg/dL LDL Cholesterol 54 (30-100) mg/dL HDL Cholesterol 37 L (40-60) mg/dL Heart Disease Risk Ratio 3.1 Lipase (23-300) U/L TSH 3rd Generation 0.499 (0.47-4.68) mIU/L Urine Color (Yellow) Urine Appearance (Clear) Urine pH (4.6-8.0) Ur Specific [place] (1.005-1.030) Urine Protein (Negative) Urine Glucose (UA) (Negative) mg/dL Urine Ketones (Negative) Urine Blood (Negative) Urine Nitrite (Negative) Urine Bilirubin (Negative) Urine Urobilinogen (0.2) mg/dL Ur Leukocyte Esterase (Negative) U Hyaline Cast (Auto) (0-2) /LPF Urine Microscopic RBC (0-5) /HPF Urine Microscopic WBC (0-5) /HPF Ur Epithelial Cells (None Seen) /HPF Urine Bacteria (None Seen) /HPF Urine Culture Reflexed (NO) Ur Random Creatinine MG/DL Urine Sodium (30-90) mmol/L Radiology Exams: Radiology Procedures Category Date Time Status CHEST 1 VIEW (PORTABLE) Stat Exams 03/02/23 20:00 Taken Assessment/Plan (1) Hyponatremia Current Visit: Yes Status: Acute Assessment & Plan: -Continue BMP Q4H, most likely secondary to hypovolemia, urine osmo/ser osmo not able to obtain, this is not done in house: TSH, lipids, and urine sodium unremarkable -Continue to correct sodium with IVF at 80ml/hr Code(s): E87.1 - HYPO-OSMOLALITY AND HYPONATREMIA (2) COPD exacerbation Current Visit: Yes Status: Acute Assessment & Plan: -Supplemental o2 as needed for target of >92% -Continue DuoNebs -CXR reviewed noting no acute cardiopulmonary etiologies -Continue prednisone 40mg daily day 2/5, no need for empiric abx at this time Code(s): J44.1 - CHRONIC OBSTRUCTIVE PULMONARY DISEASE W (ACUTE) EXACERBATION (3) Chest pain of uncertain etiology Current Visit: Yes Status: Acute Assessment & Plan: -atypical. Not like prior anginal episodes in past. ECG unrevealing. Trop :-. Continue asa. Continue rule out. -Resolved Code(s): R07.89 - OTHER CHEST PAIN
[2023-03-03] MEDS: DUONEB 0.5-3 MG/3 ml Neb IH SCH ×4 (07:11→18:34)
--- NOTE | 2023-03-03 08:42 | XRAY ---
Indication: Chest pain and short of breath. History COPD/emphysema. Comparison: October 31, 2022 Portable chest unchanged again hyperinflated with minimal bibasilar infiltrates/atelectasis. Heart not enlarged. Bony thorax intact again with osteopenia and mild degenerative changes. No new cardiopulmonary abnormalities.
[2023-03-03] MEDS: ENOXAPARIN SODIUM SQ SCH (08:56)
[2023-03-03] MEDS: ECOTRIN 81 MG PO SCH (08:56)
[2023-03-03] MEDS: PLAVIX Tablet PO SCH (08:56)
[2023-03-03] MEDS: Imdur 60MG PO SCH (08:57)
[2023-03-03] MEDS: DELTASONE 20 MG PO SCH (08:57)
[2023-03-03] MEDS: Zestril 10 MG PO SCH (08:57)
[2023-03-03] MEDS: COREG 12.5 MG PO SCH ×2 (08:58→21:14)
[2023-03-03] MEDS: Ranexa 500 MG PO SCH ×2 (08:58→21:14)
[2023-03-03] MEDS: ZOCOR 20MG PO SCH (08:58)
[2023-03-03] MEDS ORDERED: Imdur 30 MG PO SCH (10:00)
[2023-03-03] MEDS ORDERED: NON-FORMULARY ITEM (Atorvastatin Calcium [Lipitor] 80 MG Tablet) PO SCH (10:00)
[2023-03-03] MEDS ORDERED: Ranexa 500 MG PO SCH (10:00)
[2023-03-03] MEDS ORDERED: COREG 12.5 MG PO SCH (10:00)
[2023-03-03] MEDS: Sodium Chloride 0.9% 1000 ML 1,000 ML IV SCH (12:58)
[2023-03-03 13:48] LABS: ANION GAP 14.7 MEQ/L (5-15); BLOOD UREA NITROGEN 10 mg/dL (9-20); CHLORIDE 96 mmol/L (98-107); Calcium 8.2 mg/dL (8.4-10.2); Carbon Dioxide 22 mmol/L (22-30); Creatinine 1 0.74 mg/dL (0.66-1.25); EST GLOMERULAR FILTRATION RATE > 60.0 ML/MIN; Glucose 180 mg/dL (74-106); Potassium 4.5 mmol/L (3.5-5.1); SODIUM 128 mmol/L (137-145)
[2023-03-03 17:37] LABS: ANION GAP 16.8 MEQ/L (5-15); BLOOD UREA NITROGEN 11 mg/dL (9-20); CHLORIDE 94 mmol/L (98-107); Calcium 8.2 mg/dL (8.4-10.2); Carbon Dioxide 19 mmol/L (22-30); Creatinine 1 0.72 mg/dL (0.66-1.25); EST GLOMERULAR FILTRATION RATE > 60.0 ML/MIN; Glucose 172 mg/dL (74-106); Potassium 4.6 mmol/L (3.5-5.1); SODIUM 126 mmol/L (137-145)
[2023-03-03 22:15] LABS: ANION GAP 13.4 MEQ/L (5-15); BLOOD UREA NITROGEN 11 mg/dL (9-20); CHLORIDE 96 mmol/L (98-107); Carbon Dioxide 22 mmol/L (22-30); Creatinine 1 0.79 mg/dL (0.66-1.25); EST GLOMERULAR FILTRATION RATE > 60.0 ML/MIN; Glucose 140 mg/dL (74-106); Potassium 4.3 mmol/L (3.5-5.1); SODIUM 128 mmol/L (137-145)
[2023-03-04] MEDS: Sodium Chloride 0.9% 1000 ML 1,000 ML IV SCH ×2 (01:45→07:24)
[2023-03-04] MEDS: DUONEB 0.5-3 MG/3 ml Neb IH PRN (01:52)
[2023-03-04 02:04] VITALS: RESP 18
[2023-03-04 02:57] LABS: ANION GAP 12.1 MEQ/L (5-15); BLOOD UREA NITROGEN 10 mg/dL (9-20); CHLORIDE 99 mmol/L (98-107); Carbon Dioxide 22 mmol/L (22-30); Creatinine 1 0.78 mg/dL (0.66-1.25); EST GLOMERULAR FILTRATION RATE > 60.0 ML/MIN; Glucose 116 mg/dL (74-106); Potassium 4.3 mmol/L (3.5-5.1); SODIUM 129 mmol/L (137-145)
[2023-03-04 04:33] LABS: Hematocrit 34.6 % (42-50); Hemoglobin 12.1 g/dL (12.5-18.0); Mean Cell Volume 87.6 fL (78-100); Mean Corpuscular Hemoglobin 30.6 pg (26-32); Mean Platelet Volume 8.6 fL (7.5-11.0); Platelet Count 177 x10^3/uL (150-450); Red Blood Count 3.95 x10^6/uL (4.1-5.6); Red Cell Distribution Width 13.3 % (11.5-14.0); White Blood Count 10.3 x10^3/uL (4.0-10.5)
[2023-03-04 05:02] LABS: ANION GAP 12.4 MEQ/L (5-15); BLOOD UREA NITROGEN 8 mg/dL (9-20); CHLORIDE 100 mmol/L (98-107); Carbon Dioxide 22 mmol/L (22-30); Creatinine 1 0.77 mg/dL (0.66-1.25); EST GLOMERULAR FILTRATION RATE > 60.0 ML/MIN; Glucose 108 mg/dL (74-106); Potassium 3.9 mmol/L (3.5-5.1); SODIUM 130 mmol/L (137-145)
[2023-03-04] MEDS: DUONEB 0.5-3 MG/3 ml Neb IH SCH (06:58)
[2023-03-04 07:08] VITALS: BP 110/61; PULSE 67; TEMP 97.4; O2SAT 94
[2023-03-04] MEDS ORDERED: Sodium Chloride 0.9% 1000 ML 1,000 ML IV SCH (08:00)
[2023-03-04] MEDS: ENOXAPARIN SODIUM SQ SCH (08:39)
[2023-03-04] MEDS: DELTASONE 20 MG PO SCH (08:40)
[2023-03-04] MEDS: Imdur 60MG PO SCH (08:40)
[2023-03-04] MEDS: Ranexa 500 MG PO SCH (08:40)
[2023-03-04] MEDS: ECOTRIN 81 MG PO SCH (08:41)
[2023-03-04] MEDS: Zestril 10 MG PO SCH (08:41)
[2023-03-04] MEDS: PLAVIX Tablet PO SCH (08:41)
[2023-03-04] MEDS: COREG 12.5 MG PO SCH (08:42)
[2023-03-04] MEDS: ZOCOR 20MG PO SCH (08:42)
--- NOTE | 2023-03-04 10:11 | PCM.DS ---
Discharge Summary Date of Admission: 03/02/23 21:45 Date of Discharge: 03/04/23 Admitting Physician: BLAS WARD MD Primary Care Provider: CANDY WHITE Allergies Allergies No Known Drug Allergies Allergy (Verified 03/02/23 20:12) Hospital Summary - Hospital Course Hospital Course: Mr. Tristan is a 67 year old male with a pmhx of AD(PCI to LAD 3 years ago), COPD, HLP who presented 03/02/23 with three days of sob and mild diffuse left chest tightness with sharp pain admitted for COPD exacerbation, atypical chest pain, and hyponatremia. In ER, patient was at 92% spo2 on RA which improved to 98% with 2l NC. Lab findings were significant for sodium levels of 126. During hospital course, patient's sodium levels improved with IVF, now stable at 130. Patient still noted with exp wheezing in bilateral lower bases, now on RA. Chest pain has been resolved. Patient will discharge with close follow up with his pcp Dr. White, with BMP prior to appt in 3 days. 2 liter fluid restriction. Additionally, patient will be sent home with prednisone 40mg x 5 days. Patient advised to continue DuoNeb/inhaler as pescribed at home. (1) Hyponatremia Current Visit: Yes Status: Acute Assessment & Plan: -Continue BMP Q4H, most likely secondary to hypovolemia, urine osmo/ser osmo not able to obtain, this is not done in house: TSH, lipids, and urine sodium unremarkable -Continue to correct sodium with IVF at 80ml/hr - Code(s): E87.1 - HYPO-OSMOLALITY AND HYPONATREMIA (2) COPD exacerbation Current Visit: Yes Status: Acute Assessment & Plan: -Supplemental o2 as needed for target of >92% -Continue DuoNebs -CXR reviewed noting no acute cardiopulmonary etiologies -Continue prednisone 40mg daily day 08/18, no need for empiric abx at this time - Vitals & Intake/Output Vital Signs: Vital Signs Temperature 97.4 F 03/04/23 07:06 Pulse Rate 67 03/04/23 07:06 Respiratory Rate 18 03/04/23 07:06 Blood Pressure 110/61 03/04/23 07:06 O2 Sat by Pulse Oximetry 94 L 03/04/23 07:06 Intake & Output: Intake & Output 08/19/23 03/02/23 03/03/23 03/04/23 11:59 11:59 11:59 11:59 Intake Total 923 2807 Output Total 450 Balance 473 2807 Weight 83.5 kg - Lab Result Diagrams: 03/04/23 04:21 03/04/23 04:21 Lab Results-Last 24 Hrs: Lab Results-Last 24 Hours 03/03/23 03/03/23 03/03/23 Range/Units 13:10 17:20 21:45 WBC (4.0-10.5) x10^3/uL RBC (4.1-5.6) x10^6/uL Hgb (12.5-18.0) g/dL Hct (42-50) % MCV (78-100) fL MCH (26-32) pg MCHC (32-36) g/dL RDW (11.5-14.0) % Plt Count (150-450) x10^3/uL MPV (7.5-11.0) fL Sodium 128 L 126 L 128 L (137-145) mmol/L Potassium 4.5 4.6 4.3 (3.5-5.1) mmol/L Chloride 96 L 94 L 96 L (98-107) mmol/L Carbon Dioxide 22 19 L 22 (22-30) mmol/L Anion Gap 14.7 16.8 H 13.4 (5-15) MEQ/L BUN 10 11 11 (9-20) mg/dL Creatinine 0.74 0.72 0.79 (0.66-1.25) mg/dL Estimated GFR > 60.0 > 60.0 > 60.0 ML/MIN Glucose 180 H 172 H 140 H (74-106) mg/dL Calcium 8.2 L 8.2 L 8.0 L (8.4-10.2) mg/dL 03/04/23 03/04/23 03/04/23 Range/Units 01:50 04:21 04:21 WBC 10.3 (4.0-10.5) x10^3/uL RBC 3.95 L (4.1-5.6) x10^6/uL Hgb 12.1 L (12.5-18.0) g/dL Hct 34.6 L (42-50) % MCV 87.6 (78-100) fL MCH 30.6 (26-32) pg MCHC 35.0 (32-36) g/dL RDW 13.3 (11.5-14.0) % Plt Count 177 (150-450) x10^3/uL MPV 8.6 (7.5-11.0) fL Sodium 129 L 130 L (137-145) mmol/L Potassium 4.3 3.9 (3.5-5.1) mmol/L Chloride 99 100 (98-107) mmol/L Carbon Dioxide 22 22 (22-30) mmol/L Anion Gap 12.1 12.4 (5-15) MEQ/L BUN 10 8 L (9-20) mg/dL Creatinine 0.78 0.77 (0.66-1.25) mg/dL Estimated GFR > 60.0 > 60.0 ML/MIN Glucose 116 H 108 H (74-106) mg/dL Calcium 8.0 L 8.0 L (8.4-10.2) mg/dL - Radiology Exams Ordered Rad Exams-Entire Visit: Radiology Procedures Category Date Time Status CHEST 1 VIEW (PORTABLE) Stat Exams 03/02/23 20:00 Completed - Procedures and Test Procedures and Tests throughout Hospitalization: Therapy Orders & Screens 03/02/23 22:38 Respiratory Therapy Assessment DAILY Comment: Diagnosis: Chest Pain, COPD exacerbation, Hyperbilirubinemia 03/03/23 00:20 Oxygen Nasal Cannula 2 lpm Comment: Diagnosis: Chest Pain, COPD exacerbation, Hyperbilirubinemia Discharge Exam General Appearance: no apparent distress Neurologic Exam: alert, oriented x 3, cooperative Eye Exam: PERRL Ears, Nose, Throat Exam: normal ENT inspection Respiratory Exam: wheezing Cardiovascular Exam: regular rate/rhythm, normal heart sounds Gastrointestinal/Abdomen Exam: soft, normal bowel sounds Final Diagnosis/Problem List - Final Discharge Diagnosis/Problem (1) Hyponatremia Current Visit: Yes Status: Acute Code(s): E87.1 - HYPO-OSMOLALITY AND HYPONATREMIA (2) COPD exacerbation Current Visit: Yes Status: Acute Code(s): J44.1 - CHRONIC OBSTRUCTIVE PULMONARY DISEASE W (ACUTE) EXACERBATION (3) Chest pain of uncertain etiology Current Visit: Yes Status: Resolved Code(s): R07.89 - OTHER CHEST PAIN - Discharge Condition: Stable Prescriptions: New Prednisone 20 mg [Deltasone 20 mg] 40 mg PO DAILY 5 Days #10 tablet Continue Nitroglycerin [Nitrostat] 1 tab SL UD #1 bottle Ipratropium/Albuterol Sulfate [Combivent Respimat Common Canister] 2 puff IH QID PRN PRN Reason: Shortness Of Breath lisinopriL [Lisinopril] 10 mg PO DAILY Carvedilol 12.5 mg [Coreg 12.5 mg] 12.5 mg PO BID Atorvastatin Calcium [Lipitor] 80 mg PO DAILY Aspirin EC 81 mg [Ecotrin 81 mg] 81 mg PO DAILY Amlodipine Besylate 5 mg [Norvasc 5 mg] 2.5 mg PO DAILY Isosorbide Mononitrate [Isosorbide Mononitrate ER] 60 mg PO DAILY Ranolazine 500 MG [Ranexa 500 MG] 500 mg PO BID Clopidogrel Bisulfate [Clopidogrel] 75 mg PO DAILY Outpatient Orders: BMP Time Frame: 3 Days, Facility: [facility], Location: LABORATORY Follow up with: CANDY WHITE [Primary Care Provider] -
[2023-03-04 10:49] LABS: ANION GAP 12.6 MEQ/L (5-15); BLOOD UREA NITROGEN 8 mg/dL (9-20); CHLORIDE 100 mmol/L (98-107); Calcium 8.1 mg/dL (8.4-10.2); Carbon Dioxide 24 mmol/L (22-30); Creatinine 1 0.77 mg/dL (0.66-1.25); EST GLOMERULAR FILTRATION RATE > 60.0 ML/MIN; Glucose 104 mg/dL (74-106); Potassium 3.8 mmol/L (3.5-5.1); SODIUM 133 mmol/L (137-145)
== END 2023-03-04 11:04 | disposition home or self-care (01) ==
LOC: ED 19:54 → MED SURG 21:45
PROVIDERS: ADMIT Internal Medicine Critical Care Medicine; ATTEND Internal Medicine Critical Care Medicine
DX: E87.1 Hypo-osmolality and hyponatremia (principal); J44.1 Chronic obstructive pulmonary disease with (acute) exacerbation; R07.9 Chest pain, unspecified; I25.10 Atherosclerotic heart disease of native coronary artery without angina pectoris; I10 Essential (primary) hypertension; Z72.0 Tobacco use; Z79.899 Other long term (current) drug therapy; Z20.828 Contact with and (suspected) exposure to other viral communicable diseases
CPT/HCPCS: 36415; 71045; 80048; 80053; 80061; 81001; 82570; 82805; 83605; 83690; 83721; 83735; 83880; 83930; 83935; 84300; 84443; 84484; 85025; 85027; 85610; 93005; 93041; 94640; 94762; 99285; Q3014; 93268; J1650; A9270-GY; G0378